=== PATIENT | male | born 1940 | race Caucasian/White ===

== ENCOUNTER → 2017-09-28 | Day surgery (SDC) | payer MEDICARE ==
[2017-09-27 10:08] VITALS: BMI 24.7
--- NOTE | 2017-09-27 22:42 | HP ---
HISTORY OF PRESENT ILLNESS: Ms. Franklin is a 77-year-old woman who presents for evaluation of back p ain and neurogenic claudication symptoms by referral of Dr. Magallanes, who has been administering epidura l steroid injections with minimal result. MRI from [facility] reveals multilevel severe central c anal stenosis from L2 through S1 with the most significant being L2 through L4 as well as L5-S1. PAST MEDICAL HISTORY: Significant for unspecified heart problem, coronary arterial disease, hyperten ebony, diabetes. CURRENT MEDICATIONS: Flecainide, Eliquis, lisinopril, diltiazem, metformin, and gabapentin. ALLERGIES: No known drug allergies. PAST SURGICAL HISTORY: Prostate and bilateral knees. PHYSICAL EXAMINATION: NEUROLOGIC: The patient is alert and oriented x3. Gait is severely altered and antalgic. Lower ext remity motor strength is normal. ASSESSMENT: Lumbar spinal stenosis with neurogenic claudication. PLAN: Dr. Loera met with the patient; reviewed his imaging; and advocated for L3-L4 and L5 through S 1 decompression. He explained to the patient the risks, benefits, and alternatives of the procedure. The patient expressed understanding and would like to move forward with surgery as discussed. I do believe he is mentally competent and capable of making medical decisions for himself and we will mov e forward with surgery as planned. Edgar Mcmanus PA-C dictating for Dr. Loera.
[~2017-09-28] MED LIST: Bupivacaine HCl 0.5%/Epinephrine 1:200,000/PF 30 ml Vial ONE; CEFAZOLIN/Water 2 GM/20 ML SYRINGE ONE; Fentanyl 100 MCG/2 ML VIAL ONE; HYDROmorphone 0.5 MG/0.5 ML SYRINGE ONE; Lidocaine 1% PF 5 ML VIAL ONE; Midazolam HCl 2 mg/2 ml Vial ONE; PROPOFOL 200 MG/20 ML VIAL ONE; Tamsulosin HCl 0.4 MG CAP ONE; Thrombin 5000 UNITS/5 ML VIAL ONE
[2017-09-28 07:40] LABS: #Basophils 0.1 thou/uL (0.0-0.2); #Eosinphils 0.1 thou/uL (0.0-0.7); #Lymphocytes 1.9 thou/uL (1.20-3.40); #Monocytes 0.8 thou/uL (0.11-0.59); #Neutrophils 4.3 thou/uL (1.40-6.50); %Basophils 1.2 % (0.0-1.0); %Eosinophils 1.6 % (0.0-10.0); %Lymphocytes 26.7 % (21.0-51.0); %Monocytes 10.8 % (0.0-10.0); %Neutrophils 59.7 % (42.0-75.0); Hemoglobin 13.6 g/dL (14.0-18.0); Mean Corpuscular HGB CONC 33.3 g/dL (32.0-36.0); Mean Corpuscular Hemoglobin 35.9 pg (27.0-31.0); Mean Platelet Volume 6.5 fL (7.4-10.4); Platelet Count 214 thou/uL (130-400); RBC Distribution Width 12.6 % (11.5-14.5); White Blood Cell (WBC) Count 7.2 thou/uL (4.8-10.8)
[2017-09-28 08:03] LABS: Anion Gap 23 mmol/L (10-20); BUN (Urea Nitrogen) 10 mg/dL (8.4-25.7); Calc. Creatinine Clearance 106 mL/min (70-130); Calcium 9.4 mg/dL (7.8-10.44); Carbon Dioxide 18 mmol/L (23-31); Chloride 104 mmol/L (98-107); Estimated GFR-MDRD Greater than 90; Glucose 79 mg/dL (83-110); Sodium 141 mmol/L (136-145)
[2017-09-28 08:19] LABS: MDiff Complete? YES; Macrocytosis SLIGHT = 6-15 cells (100X) (0-5/hpf); PLT Morphology Comment Appears Adequate
--- NOTE | 2017-10-01 11:54 | OP ---
DATE OF PROCEDURE: 09/28/2017 SURGEON: Norris Loera M.D. AIR EXPORT AGENT: Edgar Mcmanus PA-C. INDICATION: Pain. DIAGNOSIS: Lumbar stenosis. PROCEDURES: Two-step operation, L3-L4 lumbar decompression through a separate incision and L5-S1 dec ompression. ANESTHESIA: General. TECHNIQUE: The patient was brought into the operating room and placed under general anesthesia. He was flipped from a supine to a prone position on the operating room table. Two linear incisions were planned, one over L3-4 and another over L5-S1. After prepping and draping and after an appropriate pause, the incisions were created at L3-4 and L5-S1. A C-arm image was obtained to confirm the appro priate levels. Adson rongeurs as well as 2, 3 and 4 mm Kerrisons as well as a high-speed cutting dri ll bit were used to perform laminectomies at L3-4 and L5-S1 in order to decompress the central canal predominantly from a lateral recess stenosis with some elements of epidural fat. After decompressing both segments, the wound was irrigated. Hemostasis was maintained throughout. The wound was then c losed in anatomic layers and a pressure dressing was applied. There were no known procedural complic ations.
== END ==
LOC: SDC 06:50
PROVIDERS: ATTEND Neurological Surgery
PROC: 01NB0ZZ Release Lumbar Nerve, Open Approach (ICD-10-PCS; principal; 2017-09-28)
DX: M48.062 Spinal stenosis, lumbar region with neurogenic claudication (principal); I25.10 Atherosclerotic heart disease of native coronary artery without angina pectoris; I10 Essential (primary) hypertension; E11.9 Type 2 diabetes mellitus without complications; Z79.899 Other long term (current) drug therapy; Z79.01 Long term (current) use of anticoagulants; Z79.84 Long term (current) use of oral hypoglycemic drugs
CPT/HCPCS: 76001; 80048; 85025; 93005; 93010; 96374; J0670; J1170; J2001; J2250; J2704; J3010

== ENCOUNTER 2017-10-12 13:43 | Inpatient (IN) | payer MEDICARE ==
[~2017-10-12 13:43] MED LIST changes: -Bupivacaine HCl 0.5%/Epinephrine 1:200,000/PF 30 ml Vial ONE; -CEFAZOLIN/Water 2 GM/20 ML SYRINGE ONE; -Fentanyl 100 MCG/2 ML VIAL ONE; -HYDROmorphone 0.5 MG/0.5 ML SYRINGE ONE; +Iopamidol 370 76% 50 ML VIAL FS ONE; -Lidocaine 1% PF 5 ML VIAL ONE; -Midazolam HCl 2 mg/2 ml Vial ONE; -PROPOFOL 200 MG/20 ML VIAL ONE; -Tamsulosin HCl 0.4 MG CAP ONE; -Thrombin 5000 UNITS/5 ML VIAL ONE
[2017-10-12] MEDS ORDERED: Atropine Sulfate 1 mg/10 ml Syringe ONE (14:04)
[2017-10-12] MEDS ORDERED: DOPamine 400 MG/D5W 250 ML 250 ML ONE ×2 (14:08→17:41)
[2017-10-12 14:53] LABS: INR-International Normal Ratio 1.2; PTT 24.8 SEC (22.9-36.1); Prothrombin Time 15.4 SEC (12.0-14.7)
[2017-10-12 14:54] LABS: Actual Bicarbonate (HCO3a) 16.4 mEq/L (22-28); CO2 Tension 34.2 mmHg (35.0-45.0)
[2017-10-12 14:54] LABS: Hemoglobin 14.7 g/dL (14.0-18.0); Mean Corpuscular HGB CONC 32.9 g/dL (32.0-36.0); Mean Corpuscular Hemoglobin 36.5 pg (27.0-31.0); Platelet Count 216 thou/uL (130-400); RBC Distribution Width 12.6 % (11.5-14.5); Red Blood Cell (RBC) Count 4.03 mill/uL (4.70-6.10); White Blood Cell (WBC) Count 28.4 thou/uL (4.8-10.8)
[2017-10-12 14:55] LABS: Hematocrit-ABG 42.4 % (42.0-52.0)
[2017-10-12 14:56] LABS: Analyzer IN Cardio ER; Calcium, Ionized 1.2 mmol/L (1.12-1.30); Puncture Site LB
[2017-10-12 14:57] LABS: Anion Gap 25 mmol/L (10-20); BUN (Urea Nitrogen) 29 mg/dL (8.4-25.7); CK (CPK) 17 U/L (30-200); Calc. Creatinine Clearance 0 mL/min (70-130); Calcium 9.8 mg/dL (7.8-10.44); Carbon Dioxide 17 mmol/L (23-31); Chloride 96 mmol/L (98-107); Estimated GFR-MDRD 43; Glucose 379 mg/dL (83-110); Potassium 5.9 mmol/L (3.5-5.1); Sodium 132 mmol/L (136-145)
[2017-10-12 15:03] LABS: CKMB 0.9 ng/mL (0-6.6); Troponin I 0.016 ng/mL (< 0.028)
--- NOTE | 2017-10-12 15:09 | RAD ---
CHEST ONE VIEW: History: Fall. Chest injury. FINDINGS: Cardiac silhouette is magnified by projection. Pulmonary vasculature is slightly engorged with centra l reticular nodular interstitial prominence. Mediastinum is midline with aortic calcification. Tip of an endotracheal catheter overlies the thoracic inlet. Nasogastric tube descends to the abdomen with the tip not visualized. No evidence of pneumothorax. Defibrillator patch overlies the right chest. Ol d lower left lateral rib fractures. IMPRESSION: 1. Borderline pulmonary vascular congestion. 2. Endotracheal catheter is in good radiographic position. 3. Atherosclerosis. POS: [facility]
[2017-10-12 15:12] LABS: Band 14 % (5-11); Lymphocytes 11 % (21-51); MDiff Complete? YES; Metamyelocyte 3 % (0-0); Monocytes 2 % (0-10); Myelocyte 4 % (0-0); Neutrophil 65 % (42-75); PLT Morphology Comment Appears Adequate; RBC Morphology Normal; Reactive Lymphocytes 1 % (0-10)
[2017-10-12 15:16] LABS: Bilirubin Negative (Negative); Blood, Urine Negative (Negative); Clarity CLOUDY (Clear); Glucose, Urine (Dipstick) Negative (Negative); Leukocyte Trace (Negative); Nitrite Negative (Negative); Protein, Urine (Dipstick) Negative (Neg-Trace); Specific Gravity, Urine 1.009 (1.002-1.036); pH, Urine 5.5 (5.0-9.0)
[2017-10-12 15:19] LABS: Bacteria/HPF None Seen HPF (None Seen); Hyaline Casts/LPF 0-3 HYALINE CAST LPF (0-3 Hyaline); Pathc Cast-AUWi Flag 0.14 (0-2.49); Squamous Epithelial 0-3 HPF (0-3); WBC/HPF 0-3 HPF (0-3)
--- NOTE | 2017-10-12 15:52 | CT ---
CT OF THE HEAD NONCONTRAST: INDICATION: Posttraumatic pain related to fall. FINDINGS: There is moderate chronic microvascular ischemic disease. Parenchymal volume loss and compensatory d ilatation of the ventricular system is present. There is no intracranial hemorrhage, mass effect, or midline shift. Extensive dural-based calcification is seen. Calvarium is intact. There is scatter ed paranasal sinus mucosal thickening/retention cyst formation. IMPRESSION: 1. No acute intracranial hemorrhage or mass effect. 2. Additional details are as described above. POS: [facility]
[2017-10-12] MEDS ORDERED: Calcium Chloride 1 GM/10 ML Abboject SYRINGE ONE (16:00)
[2017-10-12] MEDS ORDERED: EPINEPHrine 1 MG/10 ML Abboject SYRINGE ONE (16:00)
[2017-10-12] MEDS ORDERED: Calcium Gluc 4.6 MEQ/10 ML (100 MG/ML) ONE (16:01)
[2017-10-12] MEDS ORDERED: Dextrose 50% Abboject 50 ML SYRINGE ONE (16:01)
[2017-10-12] MEDS ORDERED: Insulin Regular 300 UNITS/3 ML VIAL ONE (16:01)
[2017-10-12] MEDS ORDERED: Sodium Bicarb 50 MEQ/50 ML Abboject 8.4% SYRINGE ONE (16:01)
--- NOTE | 2017-10-12 16:06 | CT ---
CT OF CERVICAL SPINE NONCONTRAST: 10/12/17 No prior imaging comparisons are available. FINDINGS: There is moderate multilevel degenerative change throughout the cervical spine. Straightening of the normal cervical curvature is present. There is no compression fracture. There is a grade I spondyloli sthesis at the C7-T1 level. Incidental note of traversing supportive tubes. IMPRESSION: Multilevel degenerative change cervical spine, without acute fracture identified. POS: [facility]
[2017-10-12] MEDS ORDERED: Piperacillin/Tazobactam 4.5 GM VIAL ONE (16:26)
[2017-10-12] MEDS ORDERED: Lidocaine 1% (PF) 30 ML VIAL ONE (16:58)
[2017-10-12 17:57] LABS: Troponin I 0.018 ng/mL (< 0.028)
[2017-10-12 18:27] LABS: Actual Bicarbonate (HCO3a) 17.8 mEq/L (22-28); Base Excess (BEa) -6.7 mEq/L (-2.0 to +3.0); CO2 Tension 32.8 mmHg (35.0-45.0); Hematocrit-ABG 39.7 % (42.0-52.0); Hemoglobin (Hb) 12.6 g/dL (14.0-18.0); O2 Tension (PaO2) 107.7 mmHg (> 70.0); pH, Arterial 7.35 (7.35-7.45)
[2017-10-12 18:28] LABS: Analyzer IN Cardio ER; Calcium, Ionized 1.1 mmol/L (1.12-1.30); Puncture Site RF
[2017-10-12] MEDS ORDERED: Midazolam HCl 2 mg/2 ml Vial ONE (18:45)
[2017-10-12] MEDS ORDERED: Ondansetron ODT 4 MG TAB SL PRN (19:26)
[2017-10-12] MEDS ORDERED: Ondansetron HCl/PF 4 MG/2 ML Vial IVP PRN ×2 (19:26→19:46)
[2017-10-12] MEDS ORDERED: Acetaminophen 325 MG TAB PO PRN (19:26)
[2017-10-12] MEDS ORDERED: Acetaminophen 650 MG Suppository PR PRN (19:46)
[2017-10-12] MEDS ORDERED: Dextrose 50% Abboject 50 ML SYRINGE SLOW IVP PRN (19:46)
[2017-10-12] MEDS ORDERED: CCU Electrolyte Replacement 1 EACH FS ONE (19:46)
[2017-10-12] MEDS ORDERED: Ondansetron ODT 4 MG TAB PO PRN (19:46)
[2017-10-12] MEDS ORDERED: hydrALAZINE 20 MG/ML VIAL SLOW IVP PRN (19:46)
[2017-10-12] MEDS ORDERED: Acetaminophen 500 MG TAB PO PRN (19:46)
[2017-10-12] MEDS ORDERED: Ventilator Sedation Protocol 1 EACH FS ONE (19:46)
[2017-10-12] MEDS ORDERED: cloNIDine 0.1 MG TAB PO PRN (19:46)
[2017-10-12] MEDS ORDERED: Dextrose 5% in Water 1,000 ML IV PRN (19:46)
[2017-10-12 19:47] LABS: Actual Bicarbonate (HCO3a) 18.2 mEq/L (22-28); Base Excess (BEa) -5.9 mEq/L (-2.0 to +3.0); CO2 Tension 31.8 mmHg (35.0-45.0); Hemoglobin (Hb) 13.7 g/dL (14.0-18.0); O2 Tension (PaO2) 137.7 mmHg (> 70.0); Puncture Site ALINE; pH, Arterial 7.38 (7.35-7.45)
[2017-10-12] MEDS ORDERED: Potassium Phosphate 12 MMOL in Sodium Chloride 0.9% 250 ML 250 ML IV PRN (20:03)
[2017-10-12] MEDS ORDERED: Potassium Phosphate 15 MMOL in Sodium Chloride 0.9% 250 ML 250 ML IV PRN (20:03)
[2017-10-12] MEDS ORDERED: Potassium Phosphate 9 MMOL in Sodium Chloride 0.9% 100 ML IVPB PRN (20:03)
[2017-10-12] MEDS ORDERED: Potassium Chloride 40 MEQ in Sodium Chloride 0.9% 250 ML 250 ML IVPB PRN (20:03)
[2017-10-12] MEDS ORDERED: Magnesium Oxide 400 MG TAB PO PRN ×2 (20:03)
[2017-10-12] MEDS ORDERED: Potassium Chloride 40 MEQ in Premix Bag 1 BAG IVPB PRN (20:03)
[2017-10-12] MEDS ORDERED: Magnesium 2 GM/NS 0.9% 100 ML 2 GM in Premix Bag 1 BAG IVPB PRN (20:03)
[2017-10-12] MEDS ORDERED: Potassium Chloride 20 MEQ TAB PO PRN (20:03)
[2017-10-12] MEDS ORDERED: Fentanyl BOLUS 250 ML IVPB PRN (20:08)
[2017-10-12] MEDS ORDERED: DISCONTINUE PREVIOUS NARCOTIC PAIN MEDICATIONS AND BENZODIAZEPINES FS SCH (20:08)
[2017-10-12] MEDS ORDERED: Propofol BOLUS 1,000 MG/100 ML VIAL IV PRN (20:08)
[2017-10-12] MEDS ORDERED: Lorazepam 2 MG/ML VIAL SLOW IVP PRN (20:08)
[2017-10-12] MEDS ORDERED: fentaNYL Citrate/PF 2,000 MCG in Sodium Chloride 0.9% 60 ML IV SCH (20:08)
[2017-10-12 20:10] LABS: Lactic Acid 5.1 mmol/L (0.5-2.2)
[2017-10-12] MEDS: Propofol 1,000 MG/100 ML VIAL IV PRN (20:21)
--- NOTE | 2017-10-12 20:41 | RAD ---
SINGLE VIEW OF THE CHEST: 10/12/17 COMPARISON: 10/12/17 at 2:37 p.m. HISTORY: Post cardiac device placement. FINDINGS: Single view of the chest shows an enlarged cardiomediastinal silhouette. The endotracheal tube and NG tube are unchanged in position. There is a right subclavian pacemaker with its tip in the right vent ricle. No pneumothorax is seen. There are subtle bilateral lower lobe air space opacities, unchanged. This may represent pulmonary edema or infiltrates in the lower lobes. IMPRESSION: 1. Status post pacemaker placement without evidence of complication. 2. Bilateral lower lobe infiltrates versus pulmonary edema. POS: [facility]
[2017-10-12] MEDS ORDERED: Vancomycin HCl 1 GM in Sodium Chloride 0.9% 250 ML 250 ML IVPB SCH (21:00)
[2017-10-12] MEDS: Famotidine/PF 20 mg/2ml Vial SLOW IVP SCH (21:00)
[2017-10-12 21:04] LABS: Bilirubin Negative (Negative); Blood, Urine Negative (Negative); Clarity CLOUDY (Clear); Glucose, Urine (Dipstick) >=1000 mg/dL (Negative); Leukocyte Moderate (Negative); Nitrite Negative (Negative); Protein, Urine (Dipstick) 30 mg/dL (Neg-Trace)
[2017-10-12 21:06] LABS: Bacteria/HPF None Seen HPF (None Seen); Hyaline Casts/LPF 4-6 HYALINE CAST LPF (0-3 Hyaline); Pathc Cast-AUWi Flag 0.58 (0-2.49); WBC/HPF 21-50 HPF (0-3)
[2017-10-12 21:07] LABS: Yeast-AUWi Flag 43.4 (0-25.0)
[2017-10-12 21:16] LABS: Crystals/HPF None Seen HPF (Negative); Yeast-All Forms None Seen HPF (None Seen)
[2017-10-12] MEDS ORDERED: VANCOMYCIN IVPB PRN (21:59)
[2017-10-12] MEDS: Piperacillin/Tazobactam 3.375 GM in Sodium Chloride 0.9% 100 ML IVPB SCH (22:28)
[2017-10-12] MEDS: CEFAZOLIN/Water 2 GM/20 ML SYRINGE SLOW IVP SCH (22:29)
[2017-10-12] MEDS: DOPamine 400 MG/D5W 250 ML 250 ML IVPB SCH (23:00)
[2017-10-13] MEDS ORDERED: Vancomycin HCl 1 GM in Premix Bag 1 BAG IVPB SCH (00:45)
--- NOTE | 2017-10-13 01:33 | CON ---
DATE OF CONSULTATION: 10/12/2017 HISTORY OF PRESENT ILLNESS: Mr. Franklin is a 77-year-old male, who presented to the emergency room with bradycardia. He has not been here before recently with the exception of a lumbar spine decompression. This was done apparently as an outpatient. He presents today intubated. I was consulted because of his impending admission to the Critical Care Unit. He is going to the shipyard laborer for temporary pacing. He was on epinephrine and dopamine. In the emergency department, he received close to 3 liters of volume resuscitation. It is unclear what his health was prior to this. In the [facility], there is a 1997 operative report from one of the ears, nose, and throat surgeons, but nothing else. FAMILY HISTORY: Not obtainable. REVIEW OF SYSTEMS: Not obtainable. PHYSICAL EXAMINATION: VITAL SIGNS: On pressors, his blood pressure was over 100 systolic. His heart rate was in the 30s to 40s. HEENT: Pupils are sluggish. Sclerae is anicteric. NECK: Supple. He was orally intubated. LUNGS: Clear anteriorly. HEART: Regular rhythm. ABDOMEN: Soft. EXTREMITIES: Without asymmetry. LABORATORY DATA: White count 28.4, hemoglobin 14.7. He has 14% bands on his peripheral smear. Sodium 132, potassium 5.9, chloride 96, bicarbonate 17, BUN 29, creatinine 1.59. Lactate was 9, glucose 379. IMPRESSION: Bradycardia, not responding to epinephrine and dopamine, he is going for a temporary pacer. I have asked the regional extension service specialist to leave an introducer so we can have pressors through a central line. His ejection fraction is reportedly normal. We will adjust his mechanical ventilation to compensate for his acidosis, and we will get the blood gas when he comes back from the catheterization lab. Empiric antibiotics will be started. Critical care time 40 minutes. MTDD
--- NOTE | 2017-10-13 01:50 | HP ---
DATE OF ADMISSION: 10/12/2017 PRIMARY CARE PHYSICIAN: Litzy Harrington, Nurse Practitioner. CHIEF COMPLAINT: Altered mental status. HISTORY OF PRESENT ILLNESS: This is a 77-year-old male who presents to [facility] Emergency Department after apparently sustaining a head injury in the last 24-48 hours . Patient apparently fell out of his truck, striking his head with loss of consciousness was noted w ith staggering gait as well as slurred speech and memory loss. History is obtained after discussions with the emergency room attending as well as review of an electronic medical record in the emergency room, as patient is on current mechanical ventilation and unable to provide a history. No family me mbers are available for corroboration. Patient apparently fell out of his truck, striking his head a s stated previously. Undergoing CT imaging of the brain in the emergency room showing no acute intra cranial process. Initial concern as patient is on chronic Eliquis for cardiac dysrhythmia. During t he ER course, patient was placed on the cardiac care nurse showing a sinus bradycardia with heart rates in the 40s. Patient was noted with worsening mental status and lethargy and concern for cardiogenic shock was noted. Patient was also noted with a metabolic screening concerning for sepsis with elevat ed white blood cell count and lactic acid level. Patient received IV vancomycin, Zosyn as well as at ropine, epinephrine, and dopamine due to the bradycardia. Patient was noted mottled on his lower ext remities and concern for sepsis and hypoperfusion noted. Due to patient's multitude of conditions an d unstable presentation, patient was taken for a temporary pacemaker was placed prior to transfer to the critical care unit. The patient also received intravenous normal saline, calcium gluconate, Lorena massiel R, and D50 in the emergency room. PAST MEDICAL HISTORY: 1. Cardiac dysrhythmia. 2. Question of chronic atrial fibrillation. 3. Coronary artery disease. 4. Hypertension. 5. Diabetes mellitus, type 2. 6. History of prostate hyperplasia. PAST SURGICAL HISTORY: 1. Status post prostate surgery. 2. Status post bilateral knee replacement. 3. Status post L3, L4, L5, S1 lumbar disk decompression. 4. Status post colon resection with history of colon cancer. CURRENT MEDICATIONS: 1. Metformin 500 mg p.o. b.i.d. 2. Gabapentin 300 mg p.o. daily. 3. Lisinopril 20 mg p.o. daily. 4. Tylenol No 4 of 300/60 mg 1 tab p.o. q.4-6 hours p.r.n. 5. Celebrex 200 mg p.o. b.i.d. 6. Methylprednisolone 4 mg p.o. daily. 7. Eliquis 5 mg p.o. daily. 8. Cyclobenzaprine 10 mg p.o. t.i.d. p.r.n. 9. Diltiazem 180 mg p.o. daily. 10. Flecainide 100 mg p.o. b.i.d. ALLERGIES: No known drug allergies. FAMILY HISTORY: No inheritable diseases per family report. SOCIAL HISTORY: Resides in [place], [place]. Retired. No current alcohol, tobacco, or illicit drug use. REVIEW OF SYSTEMS: Unobtainable as patient on current mechanical ventilation. PHYSICAL EXAMINATION: VITAL SIGNS: Currently blood pressure 154/75, pulse 71, respiratory rate 25, temperature 98 degrees Fahrenheit, O2 saturation 98% on 80% FiO2 by SIMV. GENERAL APPEARANCE: This is a 77-year-old male arouses and opens eyes to name and direct s timulation. Falls to sleep without direct engagement on current mechanical ventilation. HEENT: Pupils are minimally reactive to light and accommodation. Extraocular muscles are intact. D oes not track. Nares patent. OP is clear. ET tube in place. Oral mucosa dry appearing. NECK: Supple, no cervical adenopathy, no thyromegaly, no carotid bruits, no JVD appreciated. Cervic al spine with full active and passive range of motion. No meningeal signs appreciated. CHEST: Diminished breath sounds in the bases bilaterally. CARDIOVASCULAR: S1, S2 with distant heart sounds. No murmur, rub, or gallop appreciated. ABDOMEN: Obese, soft, nontender, nondistended. Bowel sounds are positive in all four quadrants. No hepatosplenomegaly, no abdominal bruits, no rebound or guarding appreciated. GENITOURINARY: Marlow catheter in place with cloudy-rachelle urine. EXTREMITIES: Warm and dry to the ankle region. Mottling of the skin noted. Pulses are palpable at the popliteal and dorsalis pedis bilaterally. Posterior tibial artery pulsation not palpated. Capil nomi refill 3 seconds. NEUROLOGIC: Sedate on mechanical ventilation. Arouses to direct stimulus or withdrawals from painfu l stimuli. PERTINENT LABORATORY AND X-RAY FINDINGS: Sodium was 132, potassium 5.9, chloride 96, CO2 of 17, anio n gap of 25, BUN 29, creatinine 1.59, estimated GFR 43, glucose 379, lactic acid level 9.0. Calcium 9.8. CK 17, troponin I negative x2. CBC showed a white blood cell count of 28.4, hemoglobin 14.7, h ematocrit 45, MCV 111, platelet count 216 with 65% neutrophils, 14% bands. PT 15.4, INR 1.2, PTT 25. ABG dated on 10/12/2017 at 1940 p.m. showed pH 7.38, pCO2 of 32, pO2 of 138, bicarbonate of 18, O2 saturation 98% on 80% FiO2, SIMV. Urinalysis showed trace leukocyte esterase. CT of the brain witho ut contrast dated 10/12/2017 showed no acute intracranial process or mass effect. CT of the cervical spine dated 10/12/2017 showed multilevel degenerative changes without acute process. A 2D transthor acic echocardiogram dated 10/12/2017 showed ejection fraction of 50% to 55%. EKG dated 10/12/2017 at 19:36 p.m. shows electronic atrial paced rhythm, heart rates in the 70s. ASSESSMENT AND PLAN: 1. Septic shock. Suspected given patient's presentation with leukocytosis and lactic acid level of 9. We will continue broad-spectrum IV antibiotic therapy to include vancomycin 1 gram IV q.12 hours with additional Zosyn 3.375 grams IV q.6 hours. Blood and urine cultures are pending. Continue [facility] sepsis protocol. Continue intravenous fluids and monitor with clinical response. 2. Complete heart block. Status post temporary pacemaker placement. We will continue telemetry [facility]. Cardiology and EP service consulted. Hold all beta-ruben and AV duyen blocking agents. 3. Acute kidney injury. Suspect multifactorial including hypovolemia. We will continue intravenous fluids and avoid nephrotoxic agents and contrast media. Repeat creatinine in the a.m. 4. Hyperkalemia. Status post calcium gluconate in the emergency department. We will continue IV fl uids and avoid all potassium supplements. Repeat potassium level in the a.m. 5. Acute hypoxic respiratory failure. Continue synchronized intermittent mandatory ventilation with mechanical support. Pulmonology consulted for co-management. Repeat portable chest x-ray and ABG i n the a.m. Continue general pulmonary supportive measures. 6. Diabetes mellitus, type 2. Insulin sliding scale for reflexive coverage. ADA diet when tolerati ng p.o. intake and off mechanical ventilation. 7. Prophylaxis. Sequential compression devices while in bed. Pepcid 20 mg IV q.12 hours. 8. Code status is FULL. Surrogate medical decision maker is patient's spouse. Total critical care time is 38 minutes.
--- NOTE | 2017-10-13 02:22 | OP ---
TEMPORARY PACEMAKER PLACEMENT REPORT REASON FOR PROCEDURE: Mr. Franklin is a 77-year-old male with history of atrial fibrillation who presented with syncope and bradycardic arrest and also hypertensive and this persisted even after a correction of acidosis. Temporary pacemaker is placed to improve hemodynamic circulation. PROCEDURE: Consent was obtained from the family for this procedure. The ER physician placed a right neck line, which was evaluated for possible placement of a pacemaker. It was found to be arterial sheath, therefore, it was removed. A venogram on the right arm was performed and under fluoroscopic guidance, right subclavian vein was cannulated. A standard sheath was introduced through which a Medtronic 50 cm active fixation lead was advanced to the right ventricle under fluoroscopic guidance. The active fixation mechanism was deployed in the [id number] right atrial upper septum and appropriate pacing thresholds were obtained. Following that, the sheath was removed and the pacemaker lead was sutured to the skin with a suture sleeve. Following that, a Medtronic pacemaker generator was attached to the pacemaker lead which was in turn secured with a into the ventricular port of an externalized pacemaker generator. Following that, this pacemaker generator was sutured to the skin and the whole area was covered with a Dermabond tape to avoid dislodgement. Cine images revealed no change in cardiac silhouette and the patient remained stable after the procedure. The adequate pressure in the right carotid artery was applied for hemostasis. CONCLUSION: 1. Successful right subclavian transvenous temporary pacemaker placement. 2. Removal of right carotid arterial line. [facility]
[2017-10-13] MEDS: DOPamine 400 MG/D5W 250 ML 250 ML IVPB SCH ×2 (04:40→14:34)
[2017-10-13] MEDS: Piperacillin/Tazobactam 3.375 GM in Sodium Chloride 0.9% 100 ML IVPB SCH ×4 (04:40→22:45)
[2017-10-13] MEDS: Sodium Chloride 0.9% 1,000 ML IV SCH ×2 (04:48→14:35)
[2017-10-13] MEDS: Propofol 1,000 MG/100 ML VIAL IV PRN ×3 (04:58→20:39)
[2017-10-13] MEDS: CEFAZOLIN/Water 2 GM/20 ML SYRINGE SLOW IVP SCH ×2 (05:07→13:33)
[2017-10-13 05:34] LABS: ALT (SGPT) 1113 U/L (8-55); AST (SGOT) 1530 U/L (5-34); Albumin 3.2 g/dL (3.4-4.8); Alkaline Phosphatase 118 U/L (40-150); Anion Gap 17 mmol/L (10-20); BUN (Urea Nitrogen) 32 mg/dL (8.4-25.7); Bilirubin, Total 1.5 mg/dL (0.2-1.2); Calc. Creatinine Clearance 62 mL/min (70-130); Calcium 8.1 mg/dL (7.8-10.44); Carbon Dioxide 20 mmol/L (23-31); Chloride 104 mmol/L (98-107); Estimated GFR-MDRD 55; Globulin 1.8 g/dL (2.4-3.5); Glucose 136 mg/dL (83-110); Potassium 3.8 mmol/L (3.5-5.1); Sodium 137 mmol/L (136-145)
[2017-10-13 06:18] LABS: Band 28 % (5-11); Eosinophils 1 % (0-10); Hemoglobin 12.6 g/dL (14.0-18.0); Lymphocytes 8 % (21-51); MDiff Complete? YES; Mean Corpuscular HGB CONC 34.8 g/dL (32.0-36.0); Mean Corpuscular Hemoglobin 36.8 pg (27.0-31.0); Mean Platelet Volume 7.3 fL (7.4-10.4); Monocytes 6 % (0-10); Neutrophil 57 % (42-75); Platelet Count 174 thou/uL (130-400); RBC Distribution Width 12.6 % (11.5-14.5); Red Blood Cell (RBC) Count 3.43 mill/uL (4.70-6.10); White Blood Cell (WBC) Count 11.9 thou/uL (4.8-10.8)
[2017-10-13 06:32] LABS: Actual Bicarbonate (HCO3a) 20.2 mEq/L (22-28); Base Excess (BEa) 0.7 mEq/L (-2.0 to +3.0); CO2 Tension 20.7 mmHg (35.0-45.0); O2 Tension (PaO2) 106.9 mmHg (> 70.0); pH, Arterial 7.61 (7.35-7.45)
[2017-10-13 06:33] LABS: ALV-art Gradient 223.725 (0-20); Puncture Site A-LINE
--- NOTE | 2017-10-13 09:53 | RAD ---
FRONTAL VIEW CHEST: COMPARISON: Previous day. INDICATION: Status post cardiac pacing device placement and history of respiratory failure. FINDINGS: Again seen is a single-lead right subclavian approach cardiac pacing device. Endotracheal and enteri c catheters remain. Patchy bilateral predominantly perihilar distribution opacities persist with int erval increase in confluence at the right lung base. Developing right pleural fluid present. IMPRESSION: Progressive pleural and parenchymal opacities as above. Continued followup is warranted. POS: [facility]
[2017-10-13] MEDS ORDERED: Aspirin 300 MG Suppository PR SCH (12:00)
--- NOTE | 2017-10-13 12:03 | PRG ---
DATE OF SERVICE: 10/13/2017 SUBJECTIVE: Mr. Franklin appears to be stabilizing. He is not paced right now. On reviewing his rhy thm strips, he is in atrial flutter. He has a temporary externalized pacemaker. OBJECTIVE: VITAL SIGNS: His respiratory rate is in the teens, blood pressure is currently 123/54 on 10 mcg of d opamine. Heart rate is 60s. LUNGS: Clear. HEART: Regular rhythm. S1 and S2 are normal. ABDOMEN: Soft, no guarding, no masses. EXTREMITIES: Without asymmetry. He has ecchymoses on his back. Chest radiograph is suggestive of a right lower lobe infiltrate, certainly could be secondary to mucu s plugging. Blood cultures so far negative. His says that he did great for 3 days after his surgery and then started developing severe back discomfort. He was started on methylprednisolone, which helped with his back discomfort and then dev eloped significant ecchymoses in his back. She is not sure when he restarted his Eliquis and he only took his meds for a few days and then stopped his flecainide, Cardizem, and Eliquis prior to coming in, because he was constipated. She says he has been fatigued lately and he was blaming it on his atrial fibrillation medications. He has never had a sleep study, but he has had some type of laser procedure done on his upper airway 3 separate times, and since that procedure, he has not snored according to the . White count is 11.9, hemoglobin 12.6, platelets 174. Sodium 137, potassium 3.8, chloride 104, bicarb santosh 20, BUN 32, creatinine 1.28. His lower extremities are still mottled. His intake and output is positive 839. IMPRESSION: 1. Respiratory failure associated with significant bradycardia 2. Severe metabolic acidosis that is improving. His pH this morning was 7.61, CO2 of 20, pO2 of 106 . His ventilator rate has been cut down from 28 to a rate of 14. His pressor requirements are dropping. We will continue to try to wean him off dopamine today. If he was on steroids, I will cover him with a low dose of Medrol for now or that he needs stress dos es of steroids. I would wonder if he did not somehow bleed into his paraspinous muscles when he went back on the Eliq uis, which has led to his ecchymoses that would explain the pain he was having, that developed severa l days after the surgery when he had actually been doing quite well up until that point. We will continue with pacing, mechanical ventilation, sedation protocol, empiric antimicrobial therap y. Hopefully, once he is off dopamine, begin the weaning process. We will repeat a chest radiograph in the morning. Continue to follow his lab work. His family drove him in for over an hour and said he was awake when he arrived and did not go out until he got [facility], so hopefully there will be no hypoperfusion or anoxic injury. Critical care time was 30 minutes.
[2017-10-13 12:37] LABS: Lactic Acid 1.1 mmol/L (0.5-2.2)
[2017-10-13 13:01] LABS: HBCM Index 0.06 S/CO (0-0.79); HBSAg Index 0.18 S/CO (0-0.99); Hep A IgM AB Non-Reactive (NonReactive); Hep A IgM S/CO 0.13 S/CO (0-0.79); Hep B Surf Ag Non-Reactive S/CO (NonReactive); Hep C IgG Ab Non-Reactive (NonReactive); Hep C Index 0.08 S/CO (0-0.79); Hepatitis B Core IGM Abs Non-Reactive (NonReactive)
[2017-10-13] MEDS: Multivitamins, Adult 10 ML, Folic Acid 1 MG, Thiamine HCl 100 MG in Dextrose 5 %-0.45 %... IV SCH (14:35)
--- NOTE | 2017-10-13 15:04 | CON ---
ELECTROPHYSIOLOGY CONSULTATION REPORT DATE OF CONSULTATION: 10/12/2017 REFERRING PHYSICIAN: Dr. Abrams. I am seeing Mr. Franklin at our [facility] ER as an electrophysiology senior financial consultant. His problems are: 1. Sudden syncope and bradycardia cardiac arrest. 2. Hypertension and marked bradycardia. 3. Marked elevated white cell count 28.4 with bandemia soft tissue infection. 4. Head trauma with negative head CT. 5. History of atrial fibrillation, followed by Dr. Vargas in [place], a possible prior ablation. 6. Chronic oral anticoagulation, Eliquis, which patient has not been compliant for the last couple of days. 7. Recent spinal surgery with Dr. Loera. He has remote history of coronary artery disease, hypertension, and diabetes. ALLERGIES: None noted. MEDICATIONS: At least prior to his last surgery could be flecainide, Eliquis, lisinopril, diltiazem, metformin, and gabapentin. Per family, the patient has not been taking medications for 3-4 days on his own initiative. SUBJECTIVE: Mr. Franklin is here after passing out this morning. He, prior to that, yesterday was feeling fairly well and had an uneventful followup with Dr. Loera, his surgeon who performed his back surgery a couple of weeks ago. He has not passed out. He has no PND or orthopnea. No stroke-like symptoms, no neurological deficits, no fever, chills, cough prior to this. In the ER, he was found to be markedly bradycardic. There was a concern about bleed in head and has his head trauma, but the CT scan was negative, then progressively more bradycardic and acidosis was also noted. His heart rate is very low, external pacing was attempted, but not successful. The heart rate slightly improved with administration of bicarbonate and also insulin, but he remains bradycardic , on high dose dopamine. I was requested by Dr. Abrams to evaluate him for temporary pacing. PAST HISTORY: As above. SOCIAL HISTORY: No current history of smoking, EtOH, or drug abuse. FAMILY HISTORY: Noncontributory. OBJECTIVE DATA: VITAL SIGNS: Blood pressure is 120/60 on dopamine. Heart rates are 40s to 50s , respirations 12. The patient is afebrile. GENERAL: Reveals a poor responsive man to pain and verbal stimuli on the ventilator. HEENT: The pupils are still reacting to light and equal bilateral but there is a fixed gaze. NECK: Supple. Neck is in a neck collar, at the time of my exam, that was removed. CHEST: Coarse without crackles. CARDIOVASCULAR: Heart sounds are regular rate and rhythm. No murmur or gallop. ABDOMEN: Benign. Bowel sounds positive. EXTREMITIES: Lower extremity without edema or cyanosis. NEUROLOGIC: Patient is nonfocal. MUSCULOSKELETAL: No joint swelling or deformities. SKIN: Without rash. DATABASE: ABG, pH 7.3, CO2 of 34, pO2 of 166, potassium was 5, sodium 134 on the blood gas sample. Electrolytes: Sodium 133, potassium was 5.9, chloride 96 , CO2 of 17, BUN of 29, creatinine 1.59, GFR was at 43. Lactic acid is 9, CK 17 , troponin 0.016. INR is 1.2. White count 28.4, hemoglobin 14.7, platelet count is 216. CT of head is unremarkable. Cervical spine also negative for fracture. ASSESSMENT AND PLAN: Mr. Franklin is a pleasant 77-year-old man with prior history of likely atrial fibrillation, on chronic flecainide therapy, on Eliquis , although he has not been taking his medications recently. He presented with a sudden collapse and was noted to be markedly bradycardic on arrival. His EKGs reviewed could represent a lower junctional or ventricular escape rhythm with marked bradycardia, possibly in the setting of ongoing atrial fibrillation. Minimally improved heart rates are noted with a bicarbonate and glucose insulin administration, but it still remains very slow even on the high dose dopamine. For last admission, it is reasonable to attempt temporary pacing, although there is a chance that temporary pacemaker may also failure to capture his ventricle if hyperkalemia and acidosis worsens. At this point, external pacing is not sufficiently capturing his myocardium, that is attempted even at next output. We will proceed with the temporary pacemaker implant. His ER physicians placed a right nec cordis sheath. MILES
--- NOTE | 2017-10-13 15:12 | OP ---
DATE OF PROCEDURE: 10/12/2017 PROCEDURE: Right femoral arterial line and femoral venous line placement. REFERRING PHYSICIAN: Dr. Curry. REASON FOR PROCEDURE: Mr. Franklin is a 77-year-old man who presented after a bradycardic arrest. He also was hypertensive and he is requiring temporary pacing. He is on high dose dopamine and epinephrine drips for maintaining heart rate and blood pressure. Arterial line is placed for hemodynamic monitoring and central venous line was placed for administration of IV fluids and pressor medications. PROCEDURE IN DETAIL: The right femoral venous area was prepped, draped, and anesthetized using subcutaneous lidocaine with ultrasound guidance, right femoral vein was accessed and a standard triple lumen catheter was advanced to the right femoral vein.Sheaths were sutured to the skin and lines were flushed and capped. Following that, the right femoral artery was accessed using ultrasound guidance and a 4-Ukrainian short sheath was introduced. The line was sutured to the skin flushed and hope to hemodynamic monitoring. CONCLUSION: Successful right femoral arterial and venous line placement in an emergent fashion due to hemodynamic instability . [facility]
--- NOTE | 2017-10-13 15:29 | CON ---
DATE OF CONSULTATION: 10/13/2017 CRITICAL CARE NOTE TIME: 120 minutes. HISTORY OF PRESENT ILLNESS: This is an unfortunate 77-year-old gentleman with history of atrial fibrillation with long history of alcohol abuse who presented when he fell out of his truck and lost consciousness. The patient has a previous history of atrial fibrillation. He has been on chronic anticoagulation therapy and flecainide. He presented markedly bradycardic and had emergent placement of a transcutaneous pacemaker. The patient was emergently intubated. PAST MEDICAL HISTORY: 1. Colon carcinoma. 2. Diabetes mellitus. PAST SURGICAL HISTORY: Knee surgery and colon surgery. MEDICATIONS: See nursing list. PHYSICAL EXAMINATION: GENERAL: This is an intubated gentleman who had transcutaneous pacing. NECK: Full. LUNGS: Have coarse breath sounds. HEART: Regular rate and rhythm. Normal S1 and S2. ABDOMEN: Distended. EXTREMITIES: Mottled. LABORATORY DATA AND IMAGING DATA: His laboratory results revealed sodium 132, potassium 5.9, chloride 96, bicarbonate 17, BUN 29, creatinine is 1.59, glucose is 379. White blood cell count 28.4, hemoglobin 14.7, hematocrit 44.6 and platelets are 216. His troponin was 0.018. His EKG revealed marked sinus bradycardia with transcutaneous pacing. IMPRESSION: 1. Septic shock. 2. Severe bradycardia. 3. History of hypertension. 4. History of diabetes mellitus. 5. History of ethanol abuse. This gentleman presents in shock. I was called to the emergency room. I started the patient on IV dopamine. He was then placed on epinephrine. His heart rate remained low. Dr. Amaro was consulted for placement of temporary electronic pacemaker. The patient's cardiac enzymes revealed no evidence. EKG showed acute EKG changes. His troponin level was normal. The patient was monitored and continuously observed for 120 minutes. The patient's prognosis is guarded. After placement of electronic pacemaker, he will be transferred to ICU. [facility]
[2017-10-13] MEDS: HumaLOG 300 UNITS/3 ML VIAL SC PRN (15:54)
--- NOTE | 2017-10-13 17:39 | ULT ---
RIGHT UPPER QUADRANT ABDOMINAL ULTRASOUND: 10/13/17 HISTORY: Alcohol abuse and transaminitis. TECHNIQUE: Multiplanar whitney scale and color doppler images were obtained in a right upper quadrant abdominal ult rasound. FINDINGS: The liver is normal in echogenicity without focal lesions or intrahepatic ductal dilatation. The gall bladder is normal without stones, sludge, gallbladder wall thickening, or pericholecystic fluid. The common bile duct is normal measuring 3 mm. The pancreas cannot be visualized. The right kidney is normal in echogenicity without hydronephrosis or calculi and measures 15.1 cm in length. A small right pleural effusion is incidentally seen. IMPRESSION: Small right pleural effusion; otherwise unremarkable exam. POS: [facility]
--- NOTE | 2017-10-13 19:57 | PDOC.PN ---
- Subjective Encounter Start Date: 10/13/17 Encounter Start Time: 10:35 Subjective: f/u for suspected septic shock on current Dopamine and empiric Zosyn -: and Vanc. Still remains on [facility] ventilation with sedation. - Objective Resuscitation Status: Resuscitation Status FULL:Full Resuscitation MAR Reviewed: Yes Vital Signs & Weight: Vital Signs (12 hours) Temp Pulse Resp BP 10/13/17 18:52 82 10/13/17 18:00 16 10/13/17 16:00 15 10/13/17 14:01 86 113/63 10/13/17 14:00 14 10/13/17 12:00 99.0 F 20 10/13/17 10:00 17 10/13/17 08:00 19 Weight Admit Weight 195 lb 5.273 oz Weight 195 lb 5.273 oz Most Recent Monitor Data Heart Rate from ECG 85 NIBP 115/70 NIBP BP-Mean 88 Respiration from ECG 21 SpO2 100 I&O: 10/12/17 10/13/17 10/14/17 06:59 06:59 06:59 Intake Total 2124.6 2039 Output Total 1285 1595 Balance 839.6 444 Result Diagrams: 10/13/17 04:49 10/13/17 04:49 Additional Labs: Accuchecks 10/13/17 10/13/17 10/13/17 15:49 11:58 00:15 POC Glucose 164 H 132 H 225 H 10/12/17 21:52 POC Glucose 289 H Microbiology 10/12/17 20:28 Urine franco catheter Urine Culture - Preliminary NO GROWTH AT 12 HOURS 10/12/17 20:20 Venous blood - Right Hand Blood Culture - Preliminary Specimen has been received and culture in progress. No Growth to date. 10/12/17 20:10 Central Line - Right Common Femoral Vein Blood Culture - Preliminary Specimen has been received and culture in progress. No Growth to date. Laboratory Tests 10/12/17 10/12/17 10/13/17 14:10 14:10 04:49 WBC 28.4 H MCV 111.0 H Band Neuts % (Manual) 14 H Creatinine 1.59 H AST 1530 H ALT 1113 H Alkaline Phosphatase 118 Lactate Dehydrogenase Cortisol Hepatitis A IgM Ab Hep Bs Antigen Hep B Core IgM Ab Hepatitis C Antibody 10/13/17 10/13/17 10/13/17 04:49 04:49 12:15 WBC MCV Band Neuts % (Manual) 28 H Creatinine AST ALT Alkaline Phosphatase Lactate Dehydrogenase Cortisol 7.70 Hepatitis A IgM Ab Non-Reactive Hep Bs Antigen Non-Reactive Hep B Core IgM Ab Non-Reactive Hepatitis C Antibody Non-Reactive 10/13/17 12:15 WBC MCV Band Neuts % (Manual) Creatinine AST ALT Alkaline Phosphatase Lactate Dehydrogenase 659 H Cortisol Hepatitis A IgM Ab Hep Bs Antigen Hep B Core IgM Ab Hepatitis C Antibody Radiology Reviewed by me: Yes (Abd sono - no acute process) EKG Reviewed by me: Yes (Tele - paced in 70's) Phys Exam - Physical Examination sedate on mech vent, ETT in place HEENT: sclera anicteric, oral pharynx no lesions Neck: no nodes, no JVD, supple, full ROM diminished in bases, coarse sounds bilat S1, S2 Cardiovascular: RRR, no significant murmur, no rub, gallop obese Gastrointestinal: soft, no distention, positive bowel sounds Musculoskeletal: no edema, pulses present sedate on Propofol Skin: no rash, normal turgor, cap refill <2 seconds Deviation from normal: Franco with rachelle urine Dx/Plan (1) Septic shock Code(s): A41.9 - SEPSIS, UNSPECIFIED ORGANISM; R65.21 - SEVERE SEPSIS WITH SEPTIC SHOCK Status: Acute Comment: Suspected with possible pulmonic source , continue Zosyn and Vancomycin empirically, Dopamine for pressor support, IVF's , serial Lactate (2) Heart block Code(s): I45.9 - CONDUCTION DISORDER, UNSPECIFIED Status: Acute Comment: s/ p temporary pacer, continue to monitor (3) Acute respiratory failure with hypoxia Code(s): J96.01 - ACUTE RESPIRATORY FAILURE WITH HYPOXIA Status: Acute Comment: SIMV currently and not weanable, PCXR in am (4) Hyperkalemia Code(s): E87.5 - HYPERKALEMIA Status: Acute Comment: Resolved, continue low- volume IVF's (5) CRISTINE (acute kidney injury) Code(s): N17.9 - ACUTE KIDNEY FAILURE, UNSPECIFIED Status: Acute Comment: Resolving, avoid nephrotoxic meds and limit contrast exposure, repeat creatinine in am (6) Alcohol abuse Code(s): F10.10 - ALCOHOL ABUSE, UNCOMPLICATED Status: Chronic Comment: Add Banana bag IV daily, Ativan prn withdrawal symptoms, check Folate/B12 level - Plan plan discussed w/ family, continue antibiotics, PT/OT, executive secretary social welfare, speech therapy, respiratory therapy, DVT proph w/SCDs continue critical support -: PCXR in am -: continue Zosyn and Vancomycin -: Wean off Dopamine as clinically tolerated -: AM lab: CMP, CBC, B12/Folate, ABG * .
[2017-10-13] MEDS: Famotidine/PF 20 mg/2ml Vial SLOW IVP SCH (20:39)
[2017-10-13] MEDS: Vancomycin HCl 1.25 GM in Sodium Chloride 0.9% 250 ML 250 ML IVPB SCH (20:39)
[2017-10-14] MEDS: Propofol 1,000 MG/100 ML VIAL IV PRN ×2 (01:52→05:36)
[2017-10-14] MEDS: Sodium Chloride 0.9% 1,000 ML IV SCH ×2 (01:52→20:53)
[2017-10-14] MEDS: Piperacillin/Tazobactam 3.375 GM in Sodium Chloride 0.9% 100 ML IVPB SCH ×4 (04:22→22:50)
[2017-10-14 05:10] LABS: ALT (SGPT) 504 U/L (8-55); AST (SGOT) 345 U/L (5-34); Alkaline Phosphatase 86 U/L (40-150); Anion Gap 11 mmol/L (10-20); BUN (Urea Nitrogen) 20 mg/dL (8.4-25.7); Calc. Creatinine Clearance 104 mL/min (70-130); Carbon Dioxide 24 mmol/L (23-31); Chloride 108 mmol/L (98-107); Estimated GFR-MDRD Greater than 90; Globulin 1.8 g/dL (2.4-3.5); Glucose 143 mg/dL (83-110); Potassium 4.1 mmol/L (3.5-5.1); Protein, Total 4.8 g/dL (5.8-8.1); Sodium 139 mmol/L (136-145)
[2017-10-14 06:22] LABS: Actual Bicarbonate (HCO3a) 19.7 mEq/L (22-28); Base Excess (BEa) -3.7 mEq/L (-2.0 to +3.0); CO2 Tension 30.5 mmHg (35.0-45.0); Hemoglobin (Hb) 11.1 g/dL (14.0-18.0); O2 Tension (PaO2) 146.8 mmHg (> 70.0); pH, Arterial 7.43 (7.35-7.45)
[2017-10-14 06:23] LABS: Puncture Site A-LINE
[2017-10-14 06:25] LABS: ALV-art Gradient 100.275 (0-20)
[2017-10-14 06:46] LABS: Band 12 % (5-11); Hemoglobin 10.9 g/dL (14.0-18.0); Lymphocytes 9 % (21-51); MDiff Complete? YES; Mean Corpuscular HGB CONC 33.2 g/dL (32.0-36.0); Mean Platelet Volume 7.5 fL (7.4-10.4); Monocytes 4 % (0-10); Neutrophil 75 % (42-75); PLT Morphology Comment Appears Decreased; Platelet Count 119 thou/uL (130-400); RBC Distribution Width 12.3 % (11.5-14.5); Red Blood Cell (RBC) Count 3.03 mill/uL (4.70-6.10); White Blood Cell (WBC) Count 9.4 thou/uL (4.8-10.8)
[2017-10-14] MEDS ORDERED: Aspirin 300 MG Suppository PR SCH (09:00)
[2017-10-14] MEDS: Multivitamins, Adult 10 ML, Folic Acid 1 MG, Thiamine HCl 100 MG in Dextrose 5 %-0.45 %... IV SCH (11:31)
--- NOTE | 2017-10-14 11:53 | RAD ---
ONE VIEW CHEST: HISTORY: Respiratory failure. COMPARISON: 10/13/17. FINDINGS: Stable right-sided transvenous pacemaker. Stable endotracheal and nasogastric tubes. Persistent opa cification of the lung bases. No pneumothorax. IMPRESSION: No significant change. POS: [facility]
--- NOTE | 2017-10-14 17:12 | PDOC.PN ---
- Subjective Encounter Start Date: 10/14/17 Encounter Start Time: 17:00 Subjective: f/u for septic shock without identified organism on prior pressors and -: Vanco/Zosyn. Extubated this am without difficulty. No new complaints. -: Does not recall the last 2+ days. - Objective Resuscitation Status: Resuscitation Status FULL:Full Resuscitation MAR Reviewed: Yes Vital Signs & Weight: Vital Signs (12 hours) Temp Pulse Resp BP Pulse Ox 10/14/17 16:00 97.8 F 97 10/14/17 12:20 86 19 95 10/14/17 12:00 16 10/14/17 10:58 92 138/82 10/14/17 10:00 19 10/14/17 08:00 18 10/14/17 07:29 98.2 F 99 18 100 10/14/17 06:07 96 111/66 10/14/17 06:00 14 Weight Admit Weight 195 lb 5.273 oz Weight 188 lb 11.451 oz Most Recent Monitor Data Heart Rate from ECG 101 NIBP 119/70 NIBP BP-Mean 102 Respiration from ECG 18 SpO2 100 I&O: 10/13/17 10/14/17 10/15/17 06:59 06:59 06:59 Intake Total 2124.6 3881 575 Output Total 1285 3355 625 Balance 839.6 526 -50 Result Diagrams: 10/14/17 04:35 10/14/17 04:35 Additional Labs: Accuchecks 10/14/17 10/14/17 10/14/17 12:12 04:36 00:50 POC Glucose 138 H 141 H 152 H 10/13/17 20:31 POC Glucose 139 H Microbiology 10/12/17 20:28 Urine franco catheter Urine Culture - Final NO GROWTH AT 36 HOURS 10/12/17 20:28 Urine franco catheter Urine Culture - Preliminary NO GROWTH AT 12 HOURS 10/12/17 20:20 Venous blood - Right Hand Blood Culture - Preliminary Specimen has been received and culture in progress. No Growth to date. 10/12/17 20:20 Venous blood - Right Hand Blood Culture - Preliminary NO GROWTH AT 48 HOURS 10/12/17 20:10 Central Line - Right Common Femoral Vein Blood Culture - Preliminary Specimen has been received and culture in progress. No Growth to date. 10/12/17 20:10 Central Line - Right Common Femoral Vein Blood Culture - Preliminary NO GROWTH AT 48 HOURS Laboratory Tests 10/12/17 10/12/17 10/13/17 14:10 14:10 04:49 WBC 28.4 H Hgb MCV 111.0 H Band Neuts % (Manual) 14 H Creatinine 1.59 H AST 1530 H ALT 1113 H Alkaline Phosphatase 118 Lactate Dehydrogenase Vitamin B12 Folate Cortisol Hepatitis A IgM Ab Hep Bs Antigen Hep B Core IgM Ab Hepatitis C Antibody 10/13/17 10/13/17 10/13/17 04:49 04:49 12:15 WBC 11.9 H Hgb 12.6 L MCV Band Neuts % (Manual) 28 H Creatinine AST ALT Alkaline Phosphatase Lactate Dehydrogenase Vitamin B12 Folate Cortisol 7.70 Hepatitis A IgM Ab Non-Reactive Hep Bs Antigen Non-Reactive Hep B Core IgM Ab Non-Reactive Hepatitis C Antibody Non-Reactive 10/13/17 10/14/17 10/14/17 12:15 04:35 04:35 WBC Hgb MCV Band Neuts % (Manual) 12 H Creatinine AST 345 H ALT 504 H Alkaline Phosphatase Lactate Dehydrogenase 659 H Vitamin B12 Folate Cortisol Hepatitis A IgM Ab Hep Bs Antigen Hep B Core IgM Ab Hepatitis C Antibody 10/14/17 04:35 WBC Hgb MCV Band Neuts % (Manual) Creatinine AST ALT Alkaline Phosphatase Lactate Dehydrogenase Vitamin B12 1328 H Folate 5.00 L Cortisol Hepatitis A IgM Ab Hep Bs Antigen Hep B Core IgM Ab Hepatitis C Antibody Radiology Reviewed by me: Yes (PCXR - bibasilar opacifications, unchanged) EKG Reviewed by me: Yes (Tele - pacing in 90's) Phys Exam - Physical Examination Constitutional: NAD HEENT: PERRLA, sclera anicteric, oral pharynx no lesions Neck: no nodes, no JVD, supple, full ROM diminished in bases Respiratory: clear to auscultation bilateral S1, S2 Cardiovascular: RRR, no significant murmur, no rub, gallop Gastrointestinal: soft, non-tender, no distention, positive bowel sounds Musculoskeletal: no edema, pulses present Neurological: non-focal, normal sensation, moves all 4 limbs Psychiatric: normal affect, A&O x 3 Skin: no rash, normal turgor, cap refill <2 seconds Dx/Plan (1) Septic shock Code(s): A41.9 - SEPSIS, UNSPECIFIED ORGANISM; R65.21 - SEVERE SEPSIS WITH SEPTIC SHOCK Status: Acute Comment: Suspected with possible pulmonic source , continue Zosyn and Vancomycin empirically, resolving (2) Heart block Code(s): I45.9 - CONDUCTION DISORDER, UNSPECIFIED Status: Acute Comment: s/ p temporary pacer, continue to monitor (3) Acute respiratory failure with hypoxia Code(s): J96.01 - ACUTE RESPIRATORY FAILURE WITH HYPOXIA Status: Acute Comment: Extubated 10/14/17, continue O2 via NC (4) Hyperkalemia Code(s): E87.5 - HYPERKALEMIA Status: Acute Comment: Resolved, continue low- volume IVF's (5) CRISTINE (acute kidney injury) Code(s): N17.9 - ACUTE KIDNEY FAILURE, UNSPECIFIED Status: Acute Comment: Resolving, avoid nephrotoxic meds and limit contrast exposure, repeat creatinine in am (6) Alcohol abuse Code(s): F10.10 - ALCOHOL ABUSE, UNCOMPLICATED Status: Chronic Comment: Add Banana bag IV daily, Ativan prn withdrawal symptoms, check Folate/B12 level - Plan plan discussed w/ family, continue antibiotics, PT/OT, social worker aide, respiratory therapy, DVT proph w/SCDs Stable currently -: Continue Vanc/Zosyn another 24h then de-escalate coverage -: Pulmonary supportive measures -: Continue Banana bag IV another 24h then d/c -: AM lab: CMP, CBC * Likely transfer to telemetry in am
--- NOTE | 2017-10-14 17:32 | PRG ---
DATE OF SERVICE: 10/14/2017 Mr. Franklin is awake and alert, in no distress. PHYSICAL EXAMINATION: GENERAL: This morning, he is afebrile. Heart rate is 100, blood pressure 119/70, respiratory rates in the teens. Ventilator was turned to basically a spontaneous breathing trial and he did well with that. He passed a leak test. LUNGS: Clear. HEART: Regular rhythm. S1 and S2 are normal. ABDOMEN: Soft and nontender. EXTREMITIES: No clubbing, cyanosis, or edema. NEUROLOGIC: Grossly nonfocal. Chest radiograph reviewed by me shows no new alveolar infiltrates. Intake and output is positive 526. LABORATORY DATA: White count 9.4, hemoglobin 10.9, platelets 119,000. Sodium 139, potassium 4.1, chloride 108, bicarbonate 24, BUN 20, creatinine 0.77. IMPRESSION: 1. Respiratory failure, felt to be a candidate for weaning and extubation. This was done successful ly. 2. Status post emergent temporary pacemaker placement. 3. Atrial flutter. 4. Recent low back surgery. 5. ? Paraspinous bleed leading to ecchymoses after his surgery and he is on his anticoagulation. 6. ? Sleep apnea. He has had 3 upper airway laser procedures per his 's history. I have reviewed microbiology all his cultures are negative so far. PLAN: Continue supportive care. He has been successfully extubated. Follow up shows that he is in no distress, met with the and answered all of her questions. Critical care time was 30 minutes.
[2017-10-14] MEDS ORDERED: Diazepam 5 MG TAB PO PRN (20:25)
[2017-10-14] MEDS ORDERED: Diazepam 5 MG TAB PO SCH (20:30)
[2017-10-14 20:58] LABS: Vancomycin, Trough 8.7 ug/mL
[2017-10-14] MEDS: Famotidine/PF 20 mg/2ml Vial SLOW IVP SCH (20:58)
[2017-10-14] MEDS: CeleCOXIB 100 MG CAP PO SCH (21:03)
[2017-10-14] MEDS: Flecainide 50 MG TAB PO SCH (21:03)
[2017-10-14] MEDS: Gabapentin 300 MG CAP PO SCH (21:04)
[2017-10-14] MEDS: HumaLOG 300 UNITS/3 ML VIAL SC PRN (21:17)
[2017-10-14] MEDS: Vancomycin HCl 1.25 GM in Sodium Chloride 0.9% 250 ML 250 ML IVPB SCH (21:45)
[2017-10-15] MEDS ORDERED: Diazepam 5 MG TAB PO PRN (04:00)
[2017-10-15] MEDS: Piperacillin/Tazobactam 3.375 GM in Sodium Chloride 0.9% 100 ML IVPB SCH ×2 (04:07→10:39)
[2017-10-15 04:56] LABS: ALT (SGPT) 305 U/L (8-55); AST (SGOT) 98 U/L (5-34); Alkaline Phosphatase 81 U/L (40-150); Anion Gap 10 mmol/L (10-20); BUN (Urea Nitrogen) 17 mg/dL (8.4-25.7); Bilirubin, Total 1.4 mg/dL (0.2-1.2); Calc. Creatinine Clearance 109 mL/min (70-130); Calcium 8.1 mg/dL (7.8-10.44); Carbon Dioxide 23 mmol/L (23-31); Chloride 108 mmol/L (98-107); Estimated GFR-MDRD Greater than 90; Globulin 1.9 g/dL (2.4-3.5); Glucose 133 mg/dL (83-110); Potassium 4.4 mmol/L (3.5-5.1); Protein, Total 4.9 g/dL (5.8-8.1); Sodium 137 mmol/L (136-145)
[2017-10-15 05:24] LABS: Band 23 % (5-11); Hemoglobin 10.5 g/dL (14.0-18.0); Lymphocytes 10 % (21-51); MDiff Complete? YES; Mean Corpuscular HGB CONC 33.6 g/dL (32.0-36.0); Mean Corpuscular Hemoglobin 36.5 pg (27.0-31.0); Mean Platelet Volume 7.6 fL (7.4-10.4); Monocytes 7 % (0-10); Neutrophil 60 % (42-75); Platelet Count 126 thou/uL (130-400); RBC Distribution Width 12.3 % (11.5-14.5); Red Blood Cell (RBC) Count 2.89 mill/uL (4.70-6.10); White Blood Cell (WBC) Count 12.1 thou/uL (4.8-10.8)
--- NOTE | 2017-10-15 07:42 | PRG ---
DATE OF SERVICE: 10/15/2017 Mr. Franklin is doing well. He is conversing in complete sentences. He moves all extremities equally . PHYSICAL EXAMINATION: VITAL SIGNS: His heart rates in the 70s-80s, blood pressure 145/74, respiratory 20, oximetry is 90%. He is afebrile. LUNGS: Lungs are clear. HEART: Regular rhythm. ABDOMEN: Abdomen is soft. EXTREMITIES: Without asymmetry. Blood cultures and urine culture are still negative. IMPRESSION: 1. Status post severe bradycardia on presentation with an emergent temporary pacemaker in place. 2. Atrial flutter. 3. Recent low back surgery. 4.? Paraspinous bleeding, bleeding to ecchymoses after surgery, back on anticoagulation. 5. Sleep apnea. 6. Transient intubation with his bradycardia and altered mental status in the emergency room. He do es not appear to have any neurological deficits. We are waiting for cardiac input regarding pacing.
[2017-10-15] MEDS: Flecainide 50 MG TAB PO SCH (08:34)
[2017-10-15] MEDS: Aspirin 81 mg Enteric Coated Tablet PO SCH (08:34)
[2017-10-15] MEDS: Vancomycin HCl 1.25 GM in Sodium Chloride 0.9% 250 ML 250 ML IVPB SCH ×2 (08:34→20:40)
[2017-10-15] MEDS: Magnesium Oxide 400 MG TAB PO SCH (08:34)
[2017-10-15] MEDS: CeleCOXIB 100 MG CAP PO SCH ×2 (08:38→20:39)
--- NOTE | 2017-10-15 09:48 | RAD ---
PORTABLE CHEST: HISTORY: Respiratory distress. COMPARISON: Prior day's exam. FINDINGS: The endotracheal tube and NG tube have been removed since the prior study. There are increased bibas ilar lung changes, as compared to the prior examination, more so in the left base. I cannot exclude some associated effusion. IMPRESSION: Slight worsening to the bibasilar lung changes. POS: [facility]
[2017-10-15] MEDS: Enoxaparin Sodium 40 MG/0.4 ML SYRINGE SC SCH (12:41)
[2017-10-15] MEDS ORDERED: Enoxaparin Sodium 40 MG/0.4 ML SYRINGE SC SCH (12:45)
[2017-10-15] MEDS ORDERED: ISOVUE-370 76%-LOCM 1 ML ONE (13:03)
--- NOTE | 2017-10-15 14:01 | CT ---
CTA OF THE CHEST WITH CONTRAST: Date: 10/15/17 COMPARISON: None. HISTORY: Complete heart block. Pulmonary emboli. TECHNIQUE: Multiple contiguous axial images were obtained in a CTA of the chest with contrast per pulmonary embo lism protocol. 3D oblique MIP reformats and direct coronal reformats were performed. FINDINGS: The pulmonary arteries are well opacified without filling defects to suggest pulmonary emboli. Global cardiomegaly is seen. There is a pacemaker with its tip in the right ventricle. No hilar or mediasti nal lymphadenopathy seen. There are small bilateral pleural effusions with adjacent atelectasis. No suspicious pulmonary nodule s are seen. No pneumothorax is seen. Hyperdensity of the renal pyramids may be secondary to renal medullary calcinosis. The other visualiz ed subdiaphragmatic structures are unremarkable. Degenerative changes are seen in the spine. The ches t wall soft tissues are unremarkable. IMPRESSION: 1. No evidence of pulmonary thromboembolism. 2. Bilateral pleural effusions with adjacent atelectasis. 3. 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 POS: [facility]
[2017-10-15] MEDS: Multivitamins, Adult 10 ML, Folic Acid 1 MG, Thiamine HCl 100 MG in Dextrose 5 %-0.45 %... IV SCH (14:14)
[2017-10-15] MEDS: Piperacillin/Tazobactam 3.375 GM, Admixture Fee 1 EACH in Sodium Chloride 0.9% 100 ML IVPB SCH ×2 (17:21→23:11)
[2017-10-15] MEDS: Gabapentin 300 MG CAP PO SCH (20:39)
[2017-10-15] MEDS: Famotidine/PF 20 mg/2ml Vial SLOW IVP SCH (20:40)
[2017-10-15] MEDS: HumaLOG 300 UNITS/3 ML VIAL SC PRN (20:54)
--- NOTE | 2017-10-15 21:37 | PDOC.PN ---
- Subjective Encounter Start Date: 10/15/17 Encounter Start Time: 20:05 Subjective: f/u for suspected septic shock on empiric Vanc/Zosyn without identifiable -: organism. Extubated and alert, talkative. Remains with temporary pace- -: maker planning on permanent PM placement 10/16/17. - Objective Resuscitation Status: Resuscitation Status FULL:Full Resuscitation MAR Reviewed: Yes Vital Signs & Weight: Vital Signs (12 hours) Temp BP 10/15/17 20:00 98.1 F 10/15/17 16:00 98 F 137/69 10/15/17 12:00 98.0 F Weight Admit Weight 195 lb 5.273 oz Weight 191 lb 2.252 oz Most Recent Monitor Data Heart Rate from ECG 87 NIBP 164/94 NIBP BP-Mean 140 Respiration from ECG 20 SpO2 100 I&O: 10/14/17 10/15/17 10/16/17 06:59 06:59 06:59 Intake Total 3881 4060 2000 Output Total 3355 1550 1105 Balance 526 2510 895 Result Diagrams: 10/15/17 04:15 10/15/17 04:15 Additional Labs: Accuchecks 10/15/17 10/14/17 20:54 20:33 POC Glucose 265 H 249 H Microbiology 10/12/17 20:28 Urine franco catheter Urine Culture - Final NO GROWTH AT 36 HOURS 10/12/17 20:28 Urine franco catheter Urine Culture - Preliminary NO GROWTH AT 12 HOURS 10/12/17 20:20 Venous blood - Right Hand Blood Culture - Preliminary Specimen has been received and culture in progress. No Growth to date. 10/12/17 20:20 Venous blood - Right Hand Blood Culture - Preliminary NO GROWTH AT 48 HOURS 10/12/17 20:10 Central Line - Right Common Femoral Vein Blood Culture - Preliminary Specimen has been received and culture in progress. No Growth to date. 10/12/17 20:10 Central Line - Right Common Femoral Vein Blood Culture - Preliminary NO GROWTH AT 48 HOURS Laboratory Tests 10/12/17 10/12/17 10/13/17 14:10 14:10 04:49 WBC 28.4 H Hgb MCV 111.0 H Band Neuts % (Manual) 14 H Creatinine 1.59 H AST 1530 H ALT 1113 H Alkaline Phosphatase 118 Lactate Dehydrogenase Vitamin B12 Folate Cortisol Hepatitis A IgM Ab Hep Bs Antigen Hep B Core IgM Ab Hepatitis C Antibody 10/13/17 10/13/17 10/13/17 04:49 04:49 12:15 WBC 11.9 H Hgb 12.6 L MCV Band Neuts % (Manual) 28 H Creatinine AST ALT Alkaline Phosphatase Lactate Dehydrogenase Vitamin B12 Folate Cortisol 7.70 Hepatitis A IgM Ab Non-Reactive Hep Bs Antigen Non-Reactive Hep B Core IgM Ab Non-Reactive Hepatitis C Antibody Non-Reactive 10/13/17 10/14/17 10/14/17 12:15 04:35 04:35 WBC Hgb MCV Band Neuts % (Manual) 12 H Creatinine AST 345 H ALT 504 H Alkaline Phosphatase Lactate Dehydrogenase 659 H Vitamin B12 Folate Cortisol Hepatitis A IgM Ab Hep Bs Antigen Hep B Core IgM Ab Hepatitis C Antibody 10/14/17 04:35 WBC Hgb MCV Band Neuts % (Manual) Creatinine AST ALT Alkaline Phosphatase Lactate Dehydrogenase Vitamin B12 1328 H Folate 5.00 L Cortisol Hepatitis A IgM Ab Hep Bs Antigen Hep B Core IgM Ab Hepatitis C Antibody Radiology Reviewed by me: Yes (CT angio chest - neg for PE) EKG Reviewed by me: Yes (Tele - A-fib, intermittent pacing) Phys Exam - Physical Examination Constitutional: NAD smiles HEENT: PERRLA, sclera anicteric, oral pharynx no lesions Neck: no nodes, no JVD, supple, full ROM Respiratory: no wheezing, no rales, no rhonchi, clear to auscultation bilateral S1, S2 Cardiovascular: no significant murmur, no rub, gallop, irregular Gastrointestinal: soft, non-tender, no distention, positive bowel sounds Musculoskeletal: no edema, pulses present + dysarthria Neurological: normal sensation, moves all 4 limbs Psychiatric: normal affect Skin: no rash, normal turgor, cap refill <2 seconds Dx/Plan (1) Septic shock Code(s): A41.9 - SEPSIS, UNSPECIFIED ORGANISM; R65.21 - SEVERE SEPSIS WITH SEPTIC SHOCK Status: Acute Comment: Suspected with possible pulmonic source , continue Zosyn and Vancomycin empirically, resolving (2) Heart block Code(s): I45.9 - CONDUCTION DISORDER, UNSPECIFIED Status: Acute Comment: s/ p temporary pacer, plan for permanent PM placement in am 10/16/17 (3) Acute respiratory failure with hypoxia Code(s): J96.01 - ACUTE RESPIRATORY FAILURE WITH HYPOXIA Status: Acute Comment: Extubated 10/14/17, continue O2 via NC (4) Hyperkalemia Code(s): E87.5 - HYPERKALEMIA Status: Acute Comment: Resolved, continue low- volume IVF's (5) CRISTINE (acute kidney injury) Code(s): N17.9 - ACUTE KIDNEY FAILURE, UNSPECIFIED Status: Acute Comment: Resolving, avoid nephrotoxic meds and limit contrast exposure, repeat creatinine in am (6) Alcohol abuse Code(s): F10.10 - ALCOHOL ABUSE, UNCOMPLICATED Status: Chronic Comment: Add Banana bag IV daily, Ativan prn withdrawal symptoms, check Folate/B12 level - Plan plan discussed w/ family, continue antibiotics, PT/OT, social science instructor, out of bed/ambulate, DVT proph w/SCDs Stable currently -: PT for mobilization -: Plan for PM placment in am -: Continue Vanc/Zosyn empirically -: Continue Banana bag daily * [facility]WA protocol * ? Inpt rehab pending PT evaluation * AM lab: CMP, CBC
[2017-10-16] MEDS: Piperacillin/Tazobactam 3.375 GM, Admixture Fee 1 EACH in Sodium Chloride 0.9% 100 ML IVPB SCH ×4 (04:51→23:57)
[2017-10-16 05:26] LABS: ALT (SGPT) 214 U/L (8-55); AST (SGOT) 35 U/L (5-34); Albumin 3.2 g/dL (3.4-4.8); Alkaline Phosphatase 95 U/L (40-150); Anion Gap 10 mmol/L (10-20); BUN (Urea Nitrogen) 15 mg/dL (8.4-25.7); Calc. Creatinine Clearance 111 mL/min (70-130); Calcium 8.4 mg/dL (7.8-10.44); Carbon Dioxide 23 mmol/L (23-31); Chloride 108 mmol/L (98-107); Estimated GFR-MDRD Greater than 90; Globulin 1.9 g/dL (2.4-3.5); Glucose 212 mg/dL (83-110); Potassium 4.3 mmol/L (3.5-5.1); Protein, Total 5.1 g/dL (5.8-8.1); Sodium 137 mmol/L (136-145)
[2017-10-16 05:45] LABS: Band 9 % (5-11); Hemoglobin 10.9 g/dL (14.0-18.0); Lymphocytes 7 % (21-51); MDiff Complete? YES; Macrocytosis SLIGHT = 6-15 cells (100X) (0-5/hpf); Mean Corpuscular HGB CONC 33.9 g/dL (32.0-36.0); Mean Corpuscular Hemoglobin 36.9 pg (27.0-31.0); Mean Platelet Volume 7.5 fL (7.4-10.4); Monocytes 5 % (0-10); Neutrophil 79 % (42-75); PLT Morphology Comment Appears Decreased; Platelet Count 124 thou/uL (130-400); RBC Distribution Width 12.3 % (11.5-14.5); Red Blood Cell (RBC) Count 2.96 mill/uL (4.70-6.10); White Blood Cell (WBC) Count 11.2 thou/uL (4.8-10.8)
[2017-10-16 08:07] LABS: Vancomycin, Trough 18.1 ug/mL
[2017-10-16] MEDS: Enoxaparin Sodium 40 MG/0.4 ML SYRINGE SC SCH (09:29)
[2017-10-16] MEDS: CeleCOXIB 100 MG CAP PO SCH ×2 (09:31→20:37)
[2017-10-16] MEDS: Magnesium Oxide 400 MG TAB PO SCH (09:32)
[2017-10-16] MEDS: Vancomycin HCl 1.25 GM in Sodium Chloride 0.9% 250 ML 250 ML IVPB SCH ×2 (09:33→20:39)
[2017-10-16] MEDS: Aspirin 81 mg Enteric Coated Tablet PO SCH (09:34)
--- NOTE | 2017-10-16 09:58 | PDOC.PN ---
- Subjective Encounter Start Date: 10/16/17 Encounter Start Time: 10:00 Doing well. Feels like he is getting weak sitting in bed, but otherwise back to his baseline. - Objective Resuscitation Status: Resuscitation Status FULL:Full Resuscitation Vital Signs & Weight: Vital Signs (12 hours) Temp Pulse Resp BP BP Pulse Ox 10/16/17 08:00 149/87 H 10/16/17 04:10 97.9 F 87 14 154/87 H 95 10/15/17 23:00 97.9 F 101 H 18 154/96 H 99 Weight Admit Weight 195 lb 5.273 oz Weight 197 lb 1.6 oz Most Recent Monitor Data Heart Rate from ECG 86 NIBP 149/88 NIBP BP-Mean 99 Respiration from ECG 21 SpO2 100 I&O: 10/15/17 10/16/17 10/17/17 06:59 06:59 06:59 Intake Total 4060 2750 Output Total 1550 2655 Balance 2510 95 Result Diagrams: 10/16/17 04:27 10/16/17 04:27 Additional Labs: Accuchecks 10/16/17 10/15/17 05:38 20:54 POC Glucose 191 H 265 H Phys Exam - Physical Examination Constitutional: NAD Neck: no JVD, supple Respiratory: no wheezing, no rales, no rhonchi, clear to auscultation bilateral Cardiovascular: RRR, no significant murmur, no rub Gastrointestinal: soft, non-tender, no distention, positive bowel sounds Musculoskeletal: no edema Neurological: non-focal Psychiatric: normal affect, A&O x 3 Skin: no rash Dx/Plan (1) CRISTINE (acute kidney injury) Code(s): N17.9 - ACUTE KIDNEY FAILURE, UNSPECIFIED Status: Resolved (2) Heart block Code(s): I45.9 - CONDUCTION DISORDER, UNSPECIFIED Status: Acute (3) Septic shock Code(s): A41.9 - SEPSIS, UNSPECIFIED ORGANISM; R65.21 - SEVERE SEPSIS WITH SEPTIC SHOCK Status: Acute Comment: Suspected with possible pulmonic source , continue Zosyn and Vancomycin empirically, resolving (4) Alcohol abuse Code(s): F10.10 - ALCOHOL ABUSE, UNCOMPLICATED Status: Chronic (5) Diabetes Code(s): E11.9 - TYPE 2 DIABETES MELLITUS WITHOUT COMPLICATIONS Status: Acute (6) Essential hypertension Code(s): I10 - ESSENTIAL (PRIMARY) HYPERTENSION Status: Acute (7) CAD (coronary artery disease) Code(s): I25.10 - ATHSCL HEART DISEASE OF [place] CORONARY ARTERY W/O ANG PCTRS Status: Acute - Plan * All cx negative. Continue with broad spectrum abx through today. * PPM to replace temporary (transcutaneous pacer) later today. * PT. * After the PPM and PT eval, DC planning. May need rehab.
[2017-10-16] MEDS: Famotidine/PF 20 mg/2ml Vial SLOW IVP SCH ×2 (09:59→20:38)
--- NOTE | 2017-10-16 10:12 | PRG ---
DATE OF SERVICE: 10/16/2017 Denies any difficulty breathing. He had a CT chest done yesterday which shows bilateral pleural effu ebony, slightly worse on the right side. He denied any difficulty breathing. He is weak. He is scheduled to have a pacemaker inserted. PHYSICAL EXAMINATION: VITAL SIGNS: Pulse is 87, temperature 97, blood pressure 104/87, sats 90% on room air. CHEST: Chest reveals decreased breath sounds bilaterally. CARDIAC: Normal S1-S2. No gallops. ABDOMEN: No masses. LABORATORY: White count 11,000, H&H is 10 and 32, platelet count is normal. Electrolytes are normal . IMPRESSION: 1. Status post bradycardia. 2. Respiratory failure. 3. Heart block. PLAN: Pacemaker will be inserted today. Otherwise, PT and supportive care. I will probably discontinue antibiotics in the next 24-48 hours. All cultures have been negative.
[2017-10-16] MEDS ORDERED: CEFAZOLIN/Water 2 GM/20 ML SYRINGE ONE (10:50)
[2017-10-16] MEDS ORDERED: Iopamidol 370 76% 50 ML VIAL FS ONE (11:13)
[2017-10-16] MEDS: Multivitamins, Adult 10 ML, Folic Acid 1 MG, Thiamine HCl 100 MG in Dextrose 5 %-0.45 %... IV SCH ×2 (13:01→16:13)
[2017-10-16] MEDS ORDERED: Fentanyl 100 MCG/2 ML VIAL ONE (13:06)
[2017-10-16] MEDS ORDERED: Midazolam HCl 2 mg/2 ml Vial ONE (13:06)
--- NOTE | 2017-10-16 20:18 | ULT ---
RIGHT UPPER EXTREMITY VENOUS DOPPLER ULTRASOUND: 10/16/17 COMPARISON: None. HISTORY: Arm swelling, edema, assess for DVT. TECHNIQUE: Multiplanar whitney scale sonographic imaging of the venous structures of the right upper extremity obta ined with color flow and spectral analysis. FINDINGS: Right internal jugular vein, subclavian vein, and axillary vein are patent. There is expansion of the right basilic vein at the antecubital fossa with thrombus. The right basili c vein is noncompressible in this region extending into the upper arm with adjacent soft tissue edema . The right cephalic vein is also expanded and filled with clot in the antecubital fossa region and u pper arm with no compression. The cephalic and basilic vein in the lower arm distal to the elbow also demonstrate occlusion. The right brachial vein is patent as is the right radial and ulnar veins. IMPRESSION: There is extensive superficial vein thrombosis involving right basilic vein from proximal upper arm t o distal forearm and in the cephalic vein from mid upper arm to distal forearm. No evidence for DVT. POS: ERICA
[2017-10-16] MEDS: Gabapentin 300 MG CAP PO SCH (20:37)
[2017-10-16] MEDS: HumaLOG 300 UNITS/3 ML VIAL SC PRN (20:51)
[2017-10-16 22:01] LABS: Hemoglobin 11.1 g/dL (14.0-18.0); Platelet Count 132 thou/uL (130-400)
[2017-10-16 22:20] LABS: Calc. Creatinine Clearance 106 mL/min (70-130); Estimated GFR-MDRD Greater than 90
[2017-10-17] MEDS: Piperacillin/Tazobactam 3.375 GM, Admixture Fee 1 EACH in Sodium Chloride 0.9% 100 ML IVPB SCH ×2 (05:54→09:05)
--- NOTE | 2017-10-17 08:18 | RAD ---
UPRIGHT PORTABLE CHEST 1 VIEW: Date: 10/17/17 HISTORY: 77-year-old male with history of post pacemaker placement evaluation. COMPARISON: 10/15/17. FINDINGS: Left ICD in place. Left pleural effusion. Borderline heart size. Mild increased linear and interstiti al markings and minimal vascular congestion. No new confluent process. IMPRESSION: Left ICD in place. Slightly improving pleural effusions and vascular congestion. No pneumothorax or o ther new process. POS: ERICA
[2017-10-17] MEDS: Lisinopril 10 MG TAB PO SCH ×2 (08:50→21:52)
[2017-10-17] MEDS: Famotidine/PF 20 mg/2ml Vial SLOW IVP SCH ×2 (08:50→21:54)
[2017-10-17] MEDS: Vancomycin HCl 1.25 GM in Sodium Chloride 0.9% 250 ML 250 ML IVPB SCH ×2 (08:51→10:13)
[2017-10-17] MEDS: Magnesium Oxide 400 MG TAB PO SCH (08:51)
[2017-10-17] MEDS: CeleCOXIB 100 MG CAP PO SCH ×2 (08:52→21:50)
--- NOTE | 2017-10-17 10:11 | PRG ---
DATE OF SERVICE: 10/17/2017 This morning he is better, status post pacemaker. No cough, though a slight cough without any diff iculty breathing. PHYSICAL EXAMINATION: VITAL SIGNS: His sats are 95 on room air, respirations 18, temperature 97, blood pressure 160/81. CHEST: Minimal rhonchi. CARDIAC: Normal S1-S2. ABDOMEN: Soft, no masses. IMPRESSION: 1. Tobacco abuse. 2. Chronic obstructive pulmonary disease. 3. Bronchitis. 4. Status post pacemaker for sick sinus syndrome. PLAN: I have switched him over to low dose prednisone. Disposition is as per Cardiology. He can fo llow up with Dr. King on an outpatient basis anytime.
--- NOTE | 2017-10-17 12:00 | PRG ---
DATE OF SERVICE: 10/17/2017 ELECTROPHYSIOLOGY FOLLOWUP NOTE SUBJECTIVE: Mr. Franklin seems to be doing fair one day after his pacemaker implantation. OBJECTIVE DATA: VITAL SIGNS: Blood pressure 168/91, heart rate 68, respirations 18, temperature 96.7 degrees Fahrenh eit. GENERAL: He is alert and oriented man in no apparent distress. NECK: Supple. Jugular veins not distended. CHEST: Coarse without crackles. CARDIOVASCULAR: Heart sounds are regular to rate and rhythm. No murmur, rub, or gallop. ABDOMEN: Benign. Bowel sounds positive. EXTREMITIES: Lower extremities without edema, clubbing, or cyanosis. DATABASE: The chest x-ray reviewed reveals no pneumothorax. adequate locations. Microbiology : Still shows no growth affect. The telemetry strips reveal atrial fibrillation with minimal ventricular pacing at times. ASSESSMENT AND PLAN: Mr. Franklin is a 77-year-old man with, 1. History of previously paroxysmal atrial fibrillation suppressed by flecainide, but now persisting off flecainide. He has presented with a severe bradycardic arrest, infection was suspected, but no culture positive was found. His symptoms have improved with temporary pacing. He underwent a dual-c hamber pacing implantation yesterday and is recovering well from that. At this point, the temporary pacemaker was removed yesterday. Plan is at this point to resume oral anticoagulation with Eliquis. He also can resume beta ruben therapy versus diltiazem could be also considered. [facility] once clinically stable. He might benefit from ischemic evaluation prior to that. 2. Right upper arm thrombophlebitis, no deep venous thrombosis. Monitor. Avoid IV on the rig ht arm. Plan to start Eliquis as well. Routine followup in 2 weeks. Antibiotics for 1 week requested.
[2017-10-17 16:29] LABS: Base Excess-Venous -8.9 mmol/L (0 (+/- 2.5)); Bicarbonate (HCO3v) 16.9 mmol/L (1.0-85.0); CO2 Tension (PvCO2) 35.9 mmHg (41.0-51.0); Hemoglobin - Calc 15.9 g/dL (12.0-18.0); O2 Tension (PvO2) 79.9 mmHg (35.0-45.0); pH (Venous) 7.281 (7.35-7.45); vO2 Saturation-calc 94.2 % (94-98)
[2017-10-17 16:30] LABS: Calcium, Ionized 1.02 mmol/L (1.12-1.32); Potassium 6.2 mmol/L (3.4-4.7)
[2017-10-17] MEDS: Multivitamins, Adult 10 ML, Folic Acid 1 MG, Thiamine HCl 100 MG in Dextrose 5 %-0.45 %... IV SCH (17:10)
[2017-10-17] MEDS ORDERED: Bisacodyl 5 MG TAB PO SCH (17:15)
--- NOTE | 2017-10-17 20:01 | PDOC.PN ---
- Subjective Encounter Start Date: 10/17/17 Encounter Start Time: 09:00 Feels well. Tolerated the PPM implantation without difficulty. - Objective Resuscitation Status: Resuscitation Status FULL:Full Resuscitation MAR Reviewed: Yes Vital Signs & Weight: Vital Signs (12 hours) Temp Pulse Pulse Pulse Resp BP BP 10/17/17 16:00 97.8 F 58 L 18 143/71 H 10/17/17 12:00 98.4 F 59 L 18 10/17/17 10:04 87 71 135/85 10/17/17 08:00 96.7 F L 60 18 BP BP Pulse Ox 10/17/17 16:00 143/71 H 95 10/17/17 12:00 124/66 94 L 10/17/17 10:04 168/103 H 10/17/17 08:00 168/81 H 95 Weight Admit Weight 194 lb 10.691 oz Weight 204 lb 6.4 oz Most Recent Monitor Data Heart Rate from ECG 86 NIBP 149/88 NIBP BP-Mean 99 Respiration from ECG 21 SpO2 100 I&O: 10/16/17 10/17/17 10/18/17 06:59 06:59 06:59 Intake Total 2750 900 1625 Output Total 2655 1950 950 Balance 95 -1050 675 Result Diagrams: 10/16/17 21:52 10/16/17 21:52 Additional Labs: Accuchecks 10/17/17 10/17/17 10/17/17 16:46 10:56 03:20 POC Glucose 125 H 224 H 162 H 10/16/17 20:48 POC Glucose 282 H Phys Exam - Physical Examination Constitutional: NAD HEENT: oral pharynx no lesions Neck: no JVD, supple Respiratory: no wheezing, no rales, no rhonchi, clear to auscultation bilateral Cardiovascular: RRR, no significant murmur Gastrointestinal: soft, non-tender, no distention, positive bowel sounds Musculoskeletal: no edema Psychiatric: normal affect Deviation from normal: Persistent mottling of the LE's. Dx/Plan (1) Heart block Code(s): I45.9 - CONDUCTION DISORDER, UNSPECIFIED Status: Acute (2) CRISTINE (acute kidney injury) Code(s): N17.9 - ACUTE KIDNEY FAILURE, UNSPECIFIED Status: Resolved (3) Septic shock Code(s): A41.9 - SEPSIS, UNSPECIFIED ORGANISM; R65.21 - SEVERE SEPSIS WITH SEPTIC SHOCK Status: Acute Comment: Review of the record makes actual infection unlikely. Suspect his lactic acidosis was related to hypoperfusion from the heart block. All cx negative. CXR negative. Weaned abx to oral Levaquin. (4) Alcohol abuse Code(s): F10.10 - ALCOHOL ABUSE, UNCOMPLICATED Status: Chronic (5) Diabetes Code(s): E11.9 - TYPE 2 DIABETES MELLITUS WITHOUT COMPLICATIONS Status: Acute (6) Essential hypertension Code(s): I10 - ESSENTIAL (PRIMARY) HYPERTENSION Status: Acute (7) CAD (coronary artery disease) Code(s): I25.10 - ATHSCL HEART DISEASE OF [place] CORONARY ARTERY W/O ANG PCTRS Status: Acute - Plan * D/C [place]. * [facility]. * Ambulate. * Discuss possible rehab options after PT eval.
[2017-10-17] MEDS: Apixaban 5 MG TAB PO SCH (21:49)
[2017-10-17] MEDS: Metoprolol Tartrate 25 MG TAB PO SCH (21:53)
[2017-10-17] MEDS: Gabapentin 300 MG CAP PO SCH (21:53)
[2017-10-18] MEDS ORDERED: predniSONE 20 MG TAB PO SCH (08:00)
[2017-10-18] MEDS: Lisinopril 10 MG TAB PO SCH (08:10)
[2017-10-18] MEDS: Magnesium Oxide 400 MG TAB PO SCH (08:11)
[2017-10-18] MEDS: CeleCOXIB 100 MG CAP PO SCH (08:11)
[2017-10-18] MEDS: Metoprolol Tartrate 25 MG TAB PO SCH (08:11)
[2017-10-18] MEDS: Apixaban 5 MG TAB PO SCH (08:11)
[2017-10-18 08:17] VITALS: TEMP 98.2
[2017-10-18] MEDS ORDERED: Famotidine 20 MG TAB PO SCH (09:00)
[2017-10-18] MEDS ORDERED: Folic Acid/Vit B Comp W-C PO SCH (09:00)
[2017-10-18 09:09] VITALS: BMI 26.0
[2017-10-18 12:43] VITALS: BP 137/72
--- NOTE | 2017-10-18 14:48 | PRG ---
DATE OF SERVICE: 10/18/2017 SUBJECTIVE: NO difficulty breathing. OBJECTIVE: VITAL SIGNS: Sats 98% on room air, respiration 18, temperature 98, blood pressure 140/73. CHEST: Decreased breath sounds without any wheezing. CARDIAC: Normal S1, S2, no gallops. ABDOMEN: Soft. IMPRESSION: Status post bradycardia, status post respiratory failure, severe deconditioning. PLAN: Awaiting placement. PT and supportive care. We will follow. MILES
--- NOTE | 2017-10-19 13:17 | PQF ---
[facility] Physician Query Form WILMAR HARPER, MAK Loving MD [id number] CLINICAL DOCUMENTATION CLARIFICATION FORM: POST DISCHARGE Addendum to original discharge summary date: ____ Late entry note date: __ DATE: 10/19/17 ATTN: Dr. Mak He Please exercise your independent, professional judgment in responding to the clarification form. Clinical indicators are provided on the bottom of this form for your review Please check appropriate box(s) to clarify if the following diagnosis has been ruled in or ruled out: Sepsis/septic shock [ ] Ruled in diagnosis [ ] Continue to treat [ ] Resolved [ ] Ruled out diagnosis [x] Cannot rule out diagnosis [ ] Other diagnosis [ ] Unable to determine In addition, please specify: Present on Admission (POA): [ ] Yes [ ] No [ ] Unable to determine For continuity of documentation, please document condition throughout progress notes and discharge summary. Thank You. CLINICAL INDICATORS - SIGNS / SYMPTOMS / LABS 10/17 PN septic shock lactic acidosis Acutal infection unlikely RISK FACTORS 10/17 PN All cx negative TREATMENTS weaned abx to oral levaquin Page 1 of 2 Note to Provider: In responding to this query, you must exercise independent clinical judgment. The fact that a query is placed does not imply that any particular answer is desired or expected. Please document your response/ clarification to this query in the patients medical record. Your response should clarify and resolve conflicting, ambiguous, or incomplete information in the health record regarding any significant reportable condition or procedure. ( 2008 [facility] Practice Brief, pg. 5) [employer] does not endorse or approve queries developed by the hospital or its agents and issued through the [employer] Monitor software that are not in accordance with the rules or regulations promulgated by the Centers for Medicare and Medicaid (CMS), Office of Manager Transition (OIG), or US Department of Health and Human Services and [facility] 2008 Practice Brief Managing an Effective Query Process or its updates (Practice Brief). MILES
== END 2017-10-18 13:15 | DRG 871 ==
LOC: ERS 13:43 → CCU 16:10 → ERS 17:34 → 2NO 10-15 22:51
PROVIDERS: ADMIT Family Medicine; ATTEND Family Medicine
PROC: 5A1223Z Performance of Cardiac Pacing, Continuous (ICD-10-PCS; 2017-10-12)
PROC: 04HY32Z Insertion of Monitoring Device into Lower Artery, Percutaneous Approach (ICD-10-PCS; 2017-10-12)
PROC: 4A133B1 Monitoring of Arterial Pressure, Peripheral, Percutaneous Approach (ICD-10-PCS; 2017-10-12)
PROC: 4A133J1 Monitoring of Arterial Pulse, Peripheral, Percutaneous Approach (ICD-10-PCS; 2017-10-12)
PROC: 06HY33Z Insertion of Infusion Device into Lower Vein, Percutaneous Approach (ICD-10-PCS; 2017-10-12)
PROC: 0JH606Z Insertion of Pacemaker, Dual Chamber into Chest Subcutaneous Tissue and Fascia, Open Approach (ICD-10-PCS; principal; 2017-10-16)
PROC: 02H63JZ Insertion of Pacemaker Lead into Right Atrium, Percutaneous Approach (ICD-10-PCS; 2017-10-16)
PROC: 02HK3JZ Insertion of Pacemaker Lead into Right Ventricle, Percutaneous Approach (ICD-10-PCS; 2017-10-16)
DX: A41.9 Sepsis, unspecified organism (principal); J96.01 Acute respiratory failure with hypoxia; R65.21 Severe sepsis with septic shock; N17.9 Acute kidney failure, unspecified; E87.2 Acidosis; I49.5 Sick sinus syndrome; I45.9 Conduction disorder, unspecified; E11.9 Type 2 diabetes mellitus without complications; I10 Essential (primary) hypertension; I25.10 Atherosclerotic heart disease of native coronary artery without angina pectoris; F10.10 Alcohol abuse, uncomplicated; Y90.9 Presence of alcohol in blood, level not specified; I48.0 Paroxysmal atrial fibrillation; I80.9 Phlebitis and thrombophlebitis of unspecified site; J44.9 Chronic obstructive pulmonary disease, unspecified; E87.5 Hyperkalemia; G47.30 Sleep apnea, unspecified; Z85.038 Personal history of other malignant neoplasm of large intestine
CPT/HCPCS: 31500; 33208; 33210; 36005; 36415; 36416; 36569; 51702; 70450; 71045; 71275; 72125; 75820; 76705; 76942; 80048; 80053; 80074; 80202; 81003; 81015; 82330; 82533; 82550; 82553; 82607; 82746; 82803; 82805; 83605; 83615; 83735; 84132; 84295; 84484; 85007; 85014; 85025; 85027; 85610; 85730; 87040; 87086; 93005; 93010; 93306; 94002; 94003; 94760; 96361; 96365; 96366; 96368; 96375; 99152; 99153; A4216; C1769; C1785; C1898; G8978-GP-CK; G8979-GP-CJ; J0171; J0360; J0461; J1265; J1644; J1650; J1815; J2001; J2060; J2250; J2543; J2704; J2920; J3010; J3370; J3411; J3475; J3490; J7042; J7050; J7506; S0028

== ENCOUNTER 2018-01-23 10:18 | Day surgery (SDC) | payer MEDICARE ==
[2018-01-22 12:32] VITALS: BMI 25.0
--- NOTE | 2018-01-22 18:38 | HP ---
HISTORY OF PRESENT ILLNESS: Mr. Franklin is a pleasant 77-year-old man known to us from previous surg eries for lumbar neurogenic claudication, back pain, and severe bilateral lower extremity pains. We treated surgically over the summer time at L3-L4. He returns now with recurrent and progressive laurent re bilateral lower extremity pain and severe profound neurogenic claudication symptoms with a new mye logram from [facility] revealing a profound L2-L3 spinal canal stenosis that would match his symptoms well. PAST MEDICAL HISTORY: Significant for heart problems, coronary artery disease, hypertension, diabete s. CURRENT MEDICATIONS: Flecainide, Eliquis, lisinopril, diltiazem, metformin, gabapentin. ALLERGIES: No known drug allergies. PAST SURGICAL HISTORY: Prostate, bilateral knees, and lumbar decompression. PHYSICAL EXAMINATION: The patient is alert and oriented x3. Gait is profoundly antalgic with only l imited ability to ambulate whatsoever. Lower extremity motor exam is also significantly limited seco ndary to pain. ASSESSMENT: Spinal stenosis and neurogenic claudication. PLAN: Dr. Loera met with the patient, reviewed imaging, and advocated for an L2-L3 decompression. H e explained to the patient the risks, benefits, and alternatives of the procedure. The patient expre ssed understanding and would like to move forward with surgery as discussed. I do believe the patien t is mentally competent and capable of making medical decisions for himself. We will move forward wi surgery as planned.
[2018-01-23] MEDS ORDERED: Fentanyl 100 MCG/2 ML VIAL ONE ×3 (10:25→12:48)
[2018-01-23] MEDS ORDERED: Bupivacaine HCl 0.5%/Epinephrine 1:200,000/PF 30 ml Vial ONE (10:29)
[2018-01-23] MEDS ORDERED: CEFAZOLIN/Water 2 GM/20 ML SYRINGE ONE ×2 (10:40→13:42)
[2018-01-23 10:59] LABS: Mean Corpuscular HGB CONC 32.7 g/dL (32.0-36.0); Mean Platelet Volume 7.8 fL (7.4-10.4); Platelet Count 157 thou/uL (130-400); RBC Distribution Width 13.3 % (11.5-14.5); White Blood Cell (WBC) Count 6.6 thou/uL (4.8-10.8)
[2018-01-23 11:21] LABS: Anion Gap 14 mmol/L (10-20); BUN (Urea Nitrogen) 6 mg/dL (8.4-25.7); Calc. Creatinine Clearance 102 mL/min (70-130); Calcium 9.6 mg/dL (7.8-10.44); Carbon Dioxide 25 mmol/L (23-31); Chloride 104 mmol/L (98-107); Estimated GFR-MDRD Greater than 90; Glucose 92 mg/dL (83-110); Potassium 4.3 mmol/L (3.5-5.1); Sodium 139 mmol/L (136-145)
--- NOTE | 2018-01-23 14:39 | OP ---
DATE OF SERVICE: 01/23/2018 SURGEON: Norris Loera M.D. METAL SOLDERER: Edgar Mcmanus PA-C. INDICATION: Pain. DIAGNOSIS: Lumbar stenosis. PROCEDURE PERFORMED: L2-L3 lumbar decompression. ANESTHESIA: General. TECHNIQUE: The patient was brought into the operating room and placed under general anesthesia. He was flipped from a supine to a prone position. After creating a linear incision, the soft tissues were swept away from midline. Self -retaining retractors were placed in the wound for optimal exposure. After confirming the appropriate level, laminectomy was performed at the L2-L3 segment. After complete decompression, the wound was irrigated. Hemostasis was maintained throughout. The wound was then cleaned and closed in anatomic layers and a pressure dressing was applied. There were no known procedural complications. MILES
== END 2018-01-23 14:10 | disposition home or self-care (01) ==
LOC: SDC 10:18
PROVIDERS: ATTEND Neurological Surgery
PROC: 00NY0ZZ Release Lumbar Spinal Cord, Open Approach (ICD-10-PCS; principal; 2018-01-23)
DX: M48.062 Spinal stenosis, lumbar region with neurogenic claudication (principal); I25.10 Atherosclerotic heart disease of native coronary artery without angina pectoris; I10 Essential (primary) hypertension; E11.9 Type 2 diabetes mellitus without complications; I48.0 Paroxysmal atrial fibrillation; Z79.01 Long term (current) use of anticoagulants; F10.11 Alcohol abuse, in remission; Z79.84 Long term (current) use of oral hypoglycemic drugs; Z79.899 Other long term (current) drug therapy; Z95.0 Presence of cardiac pacemaker; Z98.890 Other specified postprocedural states
CPT/HCPCS: 36415; 76001; 80048; 85027; J0131; J0670; J3010

== ENCOUNTER 2018-01-23 17:26 | Observation (INO) | payer MEDICARE ==
[2018-01-23] MEDS ORDERED: Fentanyl 100 MCG/2 ML VIAL ONE (18:16)
[2018-01-23] MEDS ORDERED: Fleet Enema 133 ML BOT PR PRN (22:17)
[2018-01-23] MEDS ORDERED: Acetaminophen 325 MG TAB PO PRN (22:17)
[2018-01-23] MEDS ORDERED: Bisacodyl 10 MG SUPP PR PRN (22:17)
[2018-01-23] MEDS ORDERED: HYDROcodone/Acetaminophen 7.5/325 mg Tablet PO PRN (22:17)
[2018-01-23] MEDS ORDERED: Milk Of Magnesia 30 ML UDCUP PO PRN (22:17)
[2018-01-23] MEDS ORDERED: traMADol HCl 50 MG TAB PO PRN (22:17)
[2018-01-23] MEDS ORDERED: Mag-Al 1200 mg/1200 mg/30 ML UDCUP PO PRN (22:17)
[2018-01-23] MEDS ORDERED: Promethazine HCl 25 MG/ML VIAL IM PRN (22:17)
[2018-01-23] MEDS ORDERED: [UNRECOGNIZED DRUG - REMARK] FS PRN (22:38)
[2018-01-24] MEDS: Acetaminophen/Codeine 30-300mg Tablet PO PRN ×2 (00:10→06:21)
[2018-01-24] MEDS: tiZANidine HCl 4 MG TAB PO PRN ×2 (00:11→23:10)
[2018-01-24] MEDS: Sodium Chloride 0.9% 1,000 ML IV SCH ×2 (00:11→13:36)
--- NOTE | 2018-01-24 00:48 | HP-2 ---
This is a 20-minute initial patient evaluation in which greater than 50% of the exam was spent in rel ation of treatment plan, and the remainder of the exam was spent in coordination of patient's care. CHIEF COMPLAINT: Incisional drainage and right greater than left leg pain. HISTORY OF PRESENT ILLNESS: Mr. Franklin is a 77-year-old male, who presents to [facility] for the above complaints. The patient apparently underwent an L2-L3 lumbar laminectomy with Dr. Loera earlier today. The patient states he did well postoperatively, had good pain control, was abl e to walk around and was discharged on the same day from the procedure. He noted a few hours ago pastor e incisional bleeding. The patient has a history of being on Eliquis, though states he did stop this 5 days preoperatively and has not taken any today. He does have a pacemaker. He also notes return of right greater than left posterior thigh pain as well as new right greater than left anterior thigh pain. He states he also has increased back pain, which makes it difficult for him to walk. He does have a history of undergoing similar procedure in October and states he did very well after that proced ure. The patient denies falls. PHYSICAL EXAMINATION: The patient is awake, alert, and appropriate. He has slight weakness into rig ht greater than left lower extremity. He was able to provide a good strength testing bilaterally. D oes also note some decreased sensation to the bilateral anterior thighs. His incision is covered wit h a pressure dressing and there is some bleeding onto the dressing; however, this is minimal. The carrol kaur's states she believes that it has gotten less even since they got to the ER roughly 2-3 ho urs ago. There does not appear to be any surrounding erythema. IMPRESSION AND DIAGNOSIS: Status post lumbar laminectomy today with recurrence of back pain and bila teral lower extremity pain with some incisional bleeding. PLAN: I discussed the patient's case with Dr. Perez. At this time, we will admit the patient for o vernight observation and pain control. The patient can have a pressure dressing applied to the incis ion, and I would like it covered with clean and dry gauze and change as many times as needed for satu ration. We will continue monitoring the patient's strength, although it does appear that if his pain is under control that his weakness may improve. We will also update Dr. Loera and Edgar serna hen they return tomorrow, but otherwise we will keep the patient comfortable overnight. Please call with any changes in patient's neurologic exam.
[2018-01-24 02:27] VITALS: BMI 25.0
[2018-01-24] MEDS: Ketorolac Tromethamine 30 MG/ML VIAL IVP SCH ×3 (12:29→23:13)
[2018-01-24] MEDS ORDERED: Tamsulosin HCl 0.4 MG CAP PO SCH (15:30)
[2018-01-24] MEDS ORDERED: hydrALAZINE 20 MG/ML VIAL SLOW IVP PRN (20:00)
[2018-01-24] MEDS ORDERED: Lisinopril 20 MG TAB PO SCH (20:00)
[2018-01-24] MEDS ORDERED: hydrALAZINE 20 MG/ML VIAL SLOW IVP SCH (22:30)
[2018-01-25] MEDS: Sodium Chloride 0.9% 1,000 ML IV SCH (04:14)
[2018-01-25 04:16] VITALS: TEMP 97.7
[2018-01-25 08:11] VITALS: BP 147/78
[2018-01-25] MEDS ORDERED: Famotidine/PF 20 mg/2ml Vial SLOW IVP SCH (09:00)
[2018-01-25] MEDS ORDERED: Lisinopril 20 MG TAB PO SCH (09:00)
[2018-01-25] MEDS: Acetaminophen/Codeine 30-300mg Tablet PO PRN (09:15)
[2018-01-25] MEDS: tiZANidine HCl 4 MG TAB PO PRN (09:16)
== END 2018-01-25 10:12 ==
LOC: ERS 17:26 → SJJU 23:25
PROVIDERS: ADMIT Surgery; ATTEND Surgery
PROC: 00NY0ZZ Release Lumbar Spinal Cord, Open Approach (ICD-10-PCS; principal; 2018-01-23)
DX: M96.830 Postprocedural hemorrhage of a musculoskeletal structure following a musculoskeletal system procedure (principal); M79.651 Pain in right thigh; M79.652 Pain in left thigh; M54.9 Dorsalgia, unspecified; Z95.0 Presence of cardiac pacemaker; Z98.890 Other specified postprocedural states; Z79.84 Long term (current) use of oral hypoglycemic drugs; Z79.899 Other long term (current) drug therapy; M48.062 Spinal stenosis, lumbar region with neurogenic claudication; I25.10 Atherosclerotic heart disease of native coronary artery without angina pectoris; I10 Essential (primary) hypertension; E11.9 Type 2 diabetes mellitus without complications; I48.0 Paroxysmal atrial fibrillation; Z79.01 Long term (current) use of anticoagulants; F10.11 Alcohol abuse, in remission
CPT/HCPCS: 51701; 51798; 63005; 76001; 80048; 85027; 96361; 96374; 96375 ×2; 96376; 97110 ×2; 97116; 97139 ×2; 97530; 99284; G0378; G8978; G8979; G8987; G8988; 36415; J0131; J0360; J0670; J1885; J2001; J2405; J2704; J2765; J3010; J7050; S0028

== ENCOUNTER 2018-03-22 13:41 | Outpatient (CLI) | payer MEDICARE ==
--- NOTE | 2018-03-22 16:19 | MRI ---
MRI LUMBAR SPINE WITH AND WITHOUT CONTRAST: Date: 03/22/18 HISTORY: Lumbar radiculopathy. Previous lumbar surgery. COMPARISON: None. TECHNIQUE: MRI lumbar spine is performed without intravenous and with intravenous Gadolinium administration. Mul tisequential, multiplanar imaging is performed. FINDINGS: Appropriate T1 marrow signal intensity of the lumbar vertebra. Lumbar spine vertebral body height is maintained. There is no fracture. 2.3 mm of retrolisthesis of L1 upon L2, 3.1 mm of retrolisthesis of L2 upon L3, 3.2 mm of anterolisthesis of L4 upon L5. There is intrinsic T1 and T2 hyperintensity at the T11 and T12 levels. On the postcontrast images, th ere is no abnormal enhancement with regards to the vertebral bodies. There is no abnormal enhancement within the thecal sac including the cauda equina and conus medullaris. Conus medullaris terminates at the mid L1 level. The overall AP diameter of the central spinal canal is narrowed secondary to congenitally foreshorten ed pedicles. T10-T11: Mild central canal stenosis secondary to posterior disc bulge. T11-T12: Mild central canal stenosis secondary to disc material and posterior element hypertrophy. T12-L1: No significant central canal stenosis or foraminal narrowing. L1-L2: Desiccation with moderate loss of disc space height. No significant central canal stenosis. M oderate bilateral neural foraminal narrowing. L2-L3: Desiccation with moderate loss of disc space height. Posterior laminectomy defect. There is a broad based disc bulge, along with facet hypertrophy, that results in mild central canal stenosis. T here is a T2 hyperintense lesion with peripheral enhancement measuring 1.3 cm mediolateral x 2.0 cm a nterior posterior x 1.1 cm craniocaudal. Enhancing granulation tissue involving the adjacent paraspin al soft tissues is identified. There is some mass effect upon the dorsal thecal sac with resultant mi ld central canal stenosis. Moderate right and severe left foraminal narrowing. L3-L4: Laminectomy defect. No significant central canal stenosis. Minimal generalized disc bulge. Ne ural foramina are patent bilaterally. There is enhancing scar tissue in the midline soft tissues. L4-L5: Desiccation without significant loss of disc space height. There is a generalized disc bulge, ligamentum flavum thickening, and facet hypertrophy. There does appear to be a T2 hyperintense lesio n with associated enhancement. Possible annular fissure which is associated with a superimposed centr al protrusion upon the aforementioned generalized disc bulge. There is a small amount of fluid in the left facet joint. Overall, there is mild central canal stenosis. Mild bilateral foraminal narrowing. L5-S1: Adequate disc hydration. No significant central canal stenosis. Neural foramina are patent. IMPRESSION: 1. Granulation tissue involving the laminectomy defect at L2-L3 and L3-L4. 2. There is a peripherally enhancing T2 hyperintense focus at the L2 level which may represent posto perative fluid collection. Small abscess cannot be completely excluded. 3. Varying degrees of central canal stenosis and foraminal narrowing as detailed above. 4. Multifocal osseous hemangiomas at T11 and T12. Results of study discussed with Dr. Loera on 03/22/18 at 1446 hours. CODE CR. POS: [facility]
== END 2018-03-22 13:42 | disposition home or self-care (01) ==
LOC: MRI 13:41
PROVIDERS: ATTEND Neurological Surgery
DX: M54.16 Radiculopathy, lumbar region (principal); M48.061 Spinal stenosis, lumbar region without neurogenic claudication; M48.07 Spinal stenosis, lumbosacral region; D18.09 Hemangioma of other sites; Z98.890 Other specified postprocedural states
CPT/HCPCS: 72158